=== PATIENT | male | born 1945 | race Caucasian/White ===

== ENCOUNTER 2019-07-04 08:19 | Inpatient (IN) ==
[2019-07-04] MEDS ORDERED: DUONEB (A & A) INH ONE (08:39)
--- NOTE | 2019-07-04 08:48 | PROVIDER DOCUMENTATION ---
HPI-Chest Pain - General Chief Complaint: Chest Pain Stated Complaint: chest pain Time Seen by Provider: 07/04/19 08:30 Source: patient Allergies/Adverse Reactions: Patient Allergies Allergy/AdvReac Type Severity Reaction Status Date / Time No Known Allergies Allergy Verified 07/04/19 09:11 Home Medications: Home Medication List Medication Instructions Recorded Confirmed Last Taken Type Cinacalcet HCl [Sensipar] 30 mg PO DAILY 08/09/14 07/04/19 07/03/19 07:00 History Folic Acid/Vitamin B Comp W-C 1 mg PO DAILY 06/10/17 07/04/19 07/03/19 07:00 History [Renavit Tablet] Meloxicam [Mobic] 7.5 mg PO DAILY 06/10/17 07/04/19 07/03/19 07:00 History Pramipexole Di-HCl [Mirapex] 0.5 mg PO BID 06/10/17 07/04/19 07/03/19 07:00 History Prasugrel [Effient] 10 mg PO DAILY 07/04/19 07/04/19 07/03/19 07:00 History Sevelamer Carbonate [Renvela] 800 mg PO ORDERED 07/04/19 07/04/19 07/03/19 18:00 History - History of Present Illness-CP Nature of Presenting Problem: 74 year old male pmh significatn for ESRD w/dialysis M/W/F and a history of CAD with multiple stent placed in the past was sent ot the ED from his dialysis center when he suddenly developed acute onset pressure like, non-radiating, subs ternal chest pain a/w with shortness of breath and diaphoresis, but no nausea, vomiting, dizziness, blurry vision, or feeling of going to pass out. The chest pain is worsened by movement and made better with resting, supplemental O2, and 4 baby ASA's given en route. Patient is not on supplental oxygen at home and was released this past thursday (07/01/19) from [facility] after being treated for pneumonia. The patient is currently satting at 82% on room air. Review of Systems - Adult - REVIEW OF SYSTEMS - ADULT Constitutional: reports: keaton. denies: chills, fever Eyes: denies: decreased vision, blurred vision, double vision Ears, Nose, Mouth & Throat: reports: no symptoms reported Cardiovascular: reports: chest pain, edema, irregular heart rate. denies: syncope Respiratory: reports: cough, dyspnea on exertion, shortness of breath Gastrointestinal: denies: abdominal pain, hematemesis, constipation, diarrhea, nausea, poor appetite, vomiting Genitourinary: denies: dysuria, frequent UTI's, hematuria, urinary retention Musculoskeletal: denies: joint swelling, muscle aches, muscle weakness Integumentary: reports: no symptoms reported Neurological: reports: no symptoms reported Psychiatric: reports: no symptoms reported Endocrine: reports: no symptoms reported Hematologic/Lymphatic: reports: easy bruising, lymphedema (bilateral lower extremities) All Other Systems: Reviewed and Negative Past History - Adult - PAST MEDICAL HISTORY-ADULT Review of Records: reports: Old Records Reviewed, Nursing Assessment Review, Medications Reviewed, Social history reviewed & non-contributory. Major Childhood Illnesses: reports: denies history Cardiovascular: reports: HTN Respiratory: reports: other (METS to lungs) Genitourinary: reports: cancer (renal cancer), dialysis, kidney stones Other Conditions: reports: denies history - PRIOR SURGERIES/PROCEDURES Surgical/Procedure History: reports: appendectomy, other (Patient had left femoral atery stent placed 2.[address] Neri) - PRIOR HOSPITALIZATIONS Prior Hospitalizations: reports: none - IMMUNIZATION STATUS Childhood Immunizations: See Nurse Assessment Flu Vaccine: See Nurse Assessment - FAMILY HISTORY Family History: reviewed, not pertinent - SOCIAL HISTORY Smoking: denies Substance Use: none/never Alcohol Use Frequency: never Living Situation: family (spouse) Physical Exam-General - PHYSICAL EXAM-ADULT Initial Vital Signs Reviewed: Yes (tachypnic) - CONSTITUTIONAL General Appearance: alert, moderate distress, obese, slow to respond - HEAD, EARS, NOSE, MOUTH & THROAT HENMT: normocephalic/atraumatic. negative: moist mucous membranes (dry mucous membranes) - NECK Neck: non-tender, full range of motion, supple, normal inspection. negative: Brudzinski's sign, lymphadenopathy, meningismus, thyromegaly - RESPIRATORY Respiratory: chest non-tender, respiratory distress (Patient speaks in slow short sentences, taking breaths in-between them), wheezing (minimal amount of wheezing in the irght lower lobe, overall decreased air movement in the lower lobes bilaterally but crackles, or rhonchi auscultated.), dull on percussion (lower lobes) - CARDIOVASCULAR Cardiovascular: no murmur, irregularly irregular (consistent with atrial fibrillation), other (patient has a buccal neck). negative: no edema (3+ pitting edema b/l), no gallop - GASTROINTESTINAL (ABDOMEN) Abdominal Exam: non tender, soft - MUSCULOSKELETAL Back Exam: normal inspection Extremity: normal range of motion, non-tender, no calf tenderness, pulse deficit (dcreases posterior tibial and dorasilis pedis pulses bilaterally. Each are +1) , other (palpable thrill under the right bicep, indicating intact fistula). negative: calf tenderness Peripheral Pulses: radial (R): 2+, radial (L): 2+, dorsalis-pedis (R): 1+, dorsalis-pedis (L): 1+ - SKIN Integumentary: other (venous stasis and hemosiderin deposition at the bilateral pretibial region of the LE's, the patient has a large midline scar down his abdomen from a prior surgery.) - NEUROLOGIC Neurologic: grossly normal - PSYCHIATRIC Psych/Mental Status: normal mood/affect, normal thought content, normal thought process, oriented x 3 - HEART Score HEART Score: History: Moderately Suspicious HEART Score: ECG: Normal HEART Score: Age: > or = 65 Years HEART Score: Risk Factors for Atherosclerotic Disease: > or = 3 Risk Factors or History of Atherosclerotic Disease HEART Score: Troponin: 1-3x Normal Limit Total HEART Score:: 6 Progress - PLAN OF CARE/RESULTS Progress/Plan/Lab Results: Vital Signs - 8 hr 07/04/19 08:25 07/04/19 09:45 07/04/19 09:49 Temperature 98.7 F Pulse Rate 74 73 Respiratory Rate 34 H 37 H Blood Pressure 103/54 O2 Sat by Pulse Oximetry 82 L 94 L 07/04/19 10:47 Temperature Pulse Rate Respiratory Rate Blood Pressure O2 Sat by Pulse Oximetry 96 Laboratory Results - last 24 hr 07/04/19 07/04/19 07/04/19 08:46 08:46 08:46 WBC RBC Hgb Hct MCV MCH MCHC RDW Std Deviation Plt Count MPV Immature Gran % (Auto) Neut % (Auto) Lymph % (Auto) [place] % (Auto) Eos % (Auto) Baso % (Auto) Immature Gran # (Auto) Neut # (Auto) Lymph # (Auto) [place] # (Auto) Eos # (Auto) Baso # (Auto) PT INR PTT (Actin FS) Specimen Type Sample Site pH pCO2 pO2 HCO3 Base Excess Oxyhemoglobin ABG O2 Sat (Calculated) ABG O2 Saturation ABG Carboxyhemoglobin ABG Methemoglobin Marco A Test A-a O2 Difference Total Hemoglobin Lactate Liter Flow Blood Gas Modality Vent Mode Spontaneous Rate FiO2 % Inspiratory BiPAP Expiratory BiPAP Sodium 137 Potassium 4.4 Chloride 95 L Carbon Dioxide 20 L Anion Gap 22 BUN 48 H Creatinine 8.2 H Estimated GFR/1.73 m2 6 BUN/Creatinine Ratio 6 Glucose 167 H Calculated Osmolality 290 Calcium 9.1 Total Bilirubin 0.45 AST 50 H ALT 34 Alkaline Phosphatase 121 Creatine Kinase 87 Troponin T High Sens 209 H* Hlg-K-Fagkobziifh Pept > 38599 H Total Protein 6.9 Albumin 4.3 Globulin 2.6 Albumin/Globulin Ratio 1.7 Plasma Lactate 07/04/19 07/04/19 07/04/19 08:46 08:46 08:46 WBC 18.18 H RBC 3.58 L Hgb 11.9 L Hct 37.8 L MCV 105.6 H MCH 33.2 H MCHC 31.5 L RDW Std Deviation 17.7 H Plt Count 262 MPV 11.3 H Immature Gran % (Auto) 0.3 Neut % (Auto) 91.0 H Lymph % (Auto) 4.6 L [place] % (Auto) 4.0 Eos % (Auto) 0.0 Baso % (Auto) 0.1 Immature Gran # (Auto) 0.05 H Neut # (Auto) 16.57 H Lymph # (Auto) 0.83 L [place] # (Auto) 0.72 H Eos # (Auto) 0.00 Baso # (Auto) 0.01 PT 15.9 INR 1.25 PTT (Actin FS) 80.4 H Specimen Type Sample Site pH pCO2 pO2 HCO3 Base Excess Oxyhemoglobin ABG O2 Sat (Calculated) ABG O2 Saturation ABG Carboxyhemoglobin ABG Methemoglobin Marco A Test A-a O2 Difference Total Hemoglobin Lactate Liter Flow Blood Gas Modality Vent Mode Spontaneous Rate FiO2 % Inspiratory BiPAP Expiratory BiPAP Sodium Potassium Chloride Carbon Dioxide Anion Gap BUN Creatinine Estimated GFR/1.73 m2 BUN/Creatinine Ratio Glucose Calculated Osmolality Calcium Total Bilirubin AST ALT Alkaline Phosphatase Creatine Kinase Troponin T High Sens Tvy-U-Ulonviekdxn Pept Total Protein Albumin Globulin Albumin/Globulin Ratio Plasma Lactate 1.0 07/04/19 07/04/19 09:45 11:40 WBC RBC Hgb Hct MCV MCH MCHC RDW Std Deviation Plt Count MPV Immature Gran % (Auto) Neut % (Auto) Lymph % (Auto) [place] % (Auto) Eos % (Auto) Baso % (Auto) Immature Gran # (Auto) Neut # (Auto) Lymph # (Auto) [place] # (Auto) Eos # (Auto) Baso # (Auto) PT INR PTT (Actin FS) Specimen Type ARTERIAL ARTERIAL Sample Site L BRACHIAL L RADIAL pH 7.15 L* 7.18 L* pCO2 64 H* 58 H* pO2 93 100 HCO3 19.2 L 19.3 L Base Excess -7.3 L -7.1 L Oxyhemoglobin 94.6 L 94.8 L ABG O2 Sat (Calculated) 16.6 15.5 ABG O2 Saturation 97.5 97.9 ABG Carboxyhemoglobin 2.20 2.00 ABG Methemoglobin 0.8 1.1 Marco A Test NO YES A-a O2 Difference 112.0 113.0 Total Hemoglobin 12.4 11.5 Lactate 1.00 0.90 Liter Flow 5.0 Blood Gas Modality CANNULA BI PAP Vent Mode BIPAP Spontaneous Rate 20 FiO2 % 40.0 40.0 Inspiratory BiPAP 18.0 Expiratory BiPAP 8.0 Sodium Potassium Chloride Carbon Dioxide Anion Gap BUN Creatinine Estimated GFR/1.73 m2 BUN/Creatinine Ratio Glucose Calculated Osmolality Calcium Total Bilirubin AST ALT Alkaline Phosphatase Creatine Kinase Troponin T High Sens Zdd-K-Otfxpfuuaid Pept Total Protein Albumin Globulin Albumin/Globulin Ratio Plasma Lactate Orders Category Date Time Status Admit - [facility] Routine AdmDCTranf 07/04/19 11:18 Active Activity - Strict Bedrest ORDERED Care 07/04/19 11:17 Active Cardiac Monitoring DIRECTED Care 07/04/19 08:37 Active IV Insertion NOW Care 07/04/19 08:54 Completed NEWS Score >or=5:Order NEWS Bundle S.O. NOW Care 07/04/19 08:38 Active Neurological Check Q4H Care 07/04/19 11:19 Active Notify Provider of NEWS Score NOW Care 07/04/19 08:54 Active Nursing- MD Consult Request ROUTINE Care 07/04/19 11:21 Active Oxygen Therapy- ED Nursing DIRECTED Care 07/04/19 08:37 Active Saline Loc NOW Care 07/04/19 08:37 Active Vital Signs Order ROUTINE Care 07/04/19 11:17 Active Physician/Provider Consults Routine Cons 07/04/19 11:17 Ordered Heart Healthy Diet Diet 07/04/19 11:19 Active CHEST-1 VIEW [RAD] Stat Exams 07/04/19 08:56 Completed ABG [RESP] Routine Lab 07/04/19 09:45 Completed ABG [RESP] Routine Lab 07/04/19 11:40 Completed BLOOD CULTURE [BLDCUL] Stat Lab 07/04/19 08:46 Ordered CBC WITH ELECTRONIC DIFF [HEME] Stat Lab 07/04/19 08:46 Completed CK PROFILE [SP CHEM] Stat Lab 07/04/19 08:46 Completed COMPREHENSIVE METABOLIC PANEL [CHEM] Stat Lab 07/04/19 08:46 Completed LACTATE, PLASMA [CHEM] Lab 07/04/19 12:00 Uncollected LACTATE, PLASMA [CHEM] Lab 07/04/19 15:00 Uncollected LACTATE, PLASMA [CHEM] Q3H Lab 07/04/19 08:46 Completed PRO B-NATRIURETIC PEPTIDE Stat Lab 07/04/19 08:46 Completed PROTIME WITH INR [COAG] Stat Lab 07/04/19 08:46 Completed PTT [COAG] Stat Lab 07/04/19 08:46 Completed TROPONIN T HIGH SENSITIVITY Stat Lab 07/04/19 08:46 Completed Acetaminophen [Tylenol] Med 07/04/19 11:17 Active 650 mg PO Q6H PRN PRN Albuterol 2.5MG/Ipratrop 0.5MG [Duoneb (A & A)] Med 07/04/19 08:39 Discontinued 3 ml INH NOW ONE CefEPIME [Maxipime] 1 gm Med 07/04/19 09:45 Discontinued 0.9% Sodium Chloride Inj [Ns] 50 ml IV NOW Heparin Med 07/04/19 10:04 Discontinued 5,000 unit SUBQ NOW ONE Levofloxacin 750 mg/D5w [Levaquin 750 mg/D5w] Med 07/04/19 09:45 Discontinued 750 mg in 150 ml IV NOW Ondansetron [Zofran] Med 07/04/19 11:17 Active 4 mg IV Q4H PRN PRN Vancomycin 500 mg/Ns Med 07/04/19 09:46 Discontinued 500 mg in 100 ml IV NOW Aerosol Treatments Routine Oth 07/04/19 08:39 Completed Aerosol Treatments Stat Oth 07/04/19 08:39 Completed BIPAP Stat Oth 07/04/19 10:30 Active CP/SOB/Palp >45 yrs of Age Stat Oth 07/04/19 08:37 Ordered O2 Per Protocol Stat Oth 07/04/19 08:54 Active EKG [EKG] Stat Ther 07/04/19 08:21 Draft Transfer/Admit Order [TRANSFER] Routine Transfer 07/04/19 11:22 Ordered POCUS of the heart shows no surrounding fluid within the pericardial space. 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 There are bilateral pleural effusions. There is a double-lumen catheter in the right internal jugular with its tip in the superior vena cava. IMPRESSION: Pulmonary edema and pleural effusions. Electronically signed by Elvis Uriarte 07/04/2019 9:13 AM 07/04/19912 Interpreting Physician: Elvis Uriarte MD Dictated Date/Time: 07/04/19911 cc: Amos Fitzgerald DO; Shashank Guido MD) - CONSULTS/PCP/HOSPITALIST Notification #1 *Consult/PCP/Hospitalist*: Occupational Therap[facility] to [place] transfer center Time Discussed: 10:55 (Will not accept admission) Reason/Comments: No medical necessary reason for transfer #2 Consult: Dr. Guido Time Discussed: 11:13 (Will accept inpatient) Reason/Comments: sepsis, probable PNA, pulmonary edema, pleural effusion, elevated troponin Consult Disposition: Will see in ED, Admit Departure - Departure Date of Disposition Decision: 07/04/19 Time of Disposition Decision: 11:14 (Admit inpatient) DIAGNOSIS: Dyspnea on exertion, Hypoxemia, Bilateral lower extremity edema, Pleural effusion, bilateral, Elevated troponin, Respiratory acidosis Chest pain Qualifiers: Ischemic chest pain type: unspecified angina pectoris type Pulmonary edema Qualifiers: Chronicity: acute Qualified Code(s): J81.0 - Acute pulmonary edema Sepsis Qualifiers: Sepsis type: sepsis due to unspecified organism Sepsis acute organ dysfunction status: with acute organ dysfunction Pneumonia Qualifiers: Pneumonia type: due to unspecified organism Laterality: right Lung location: lower lobe of lung Qualified Code(s): J18.1 - Lobar pneumonia, unspecified organism Disposition: ADMITTED INPATIENT 09 Certified Medical Emergency: Emergent Condition: Critical - Critical Care Note This patient required my direct & personal management of CC.: Yes Total Time (mins): 65 (The patient was admitted to the hospital, given breathing treatments and started on Bipap for fear of immenant respiratory system latha lure.) Critical Care Statement: This patient required my direct personal management to treat or rule out processes, the absence of which, could potentiallly result in sudden, clinically significant life or limb threatening deterioration. Attestation - Physician/ RADHA Attestation Patient care was provided by Advanced Practice Provider:: No The physician spent face to face time with patient:: Yes Advanced Practice Provider documentation review:: Supervising physician onsite and consulted in the evaluation and care of this patient. The physician did have a face to face encounter with the patient.
--- NOTE | 2019-07-04 09:15 | Diag Imaging Result Doc PS360 ---
EXAM: CHEST-1 VIEW 07/04/2019 HISTORY: chest pain TECHNIQUE: AP portable semiupright at 0902 COMMENT: There is worsening alveolar opacification of the lungs particularly the right lower lobe compared to seven 2018. There are bilateral pleural effusions. There is a double-lumen catheter in the right internal jugular with its tip in the superior vena cava. IMPRESSION: Pulmonary edema and pleural effusions. Electronically signed by Elvis Uriarte 07/04/2019 9:13 AM
[2019-07-04 09:27] LABS: INR 1.25; PROTIME 15.9 Seconds (11.0-16.0)
[2019-07-04 09:29] LABS: PTT 80.4 Seconds (22.3-41.8)
[2019-07-04] MEDS ORDERED: LEVAQUIN 750 MG/D5W 750 MG/150 ML IVPB IV ONE (09:45)
[2019-07-04] MEDS ORDERED: MAXIPIME 1 GM in NS 50 ML IV ONE (09:45)
[2019-07-04] MEDS ORDERED: VANCOMYCIN 500 MG/NS 500 MG/100 ML IVPB IV ONE (09:46)
[2019-07-04 10:03] LABS: BASO# 0.01 X1000 (0.0-0.2); BASO% 0.1 % (0.0-0.8); HEMATOCRIT 37.8 % (42.0-52.0); HEMOGLOBIN 11.9 g/dL (14.0-18.0); IMM GRAN# 0.05 X1000 (0.0-0.04); IMM GRAN% 0.3 % (0.0-0.5); LYMPH# 0.83 X1000 (1.2-3.4); LYMPH% 4.6 % (20.5-51.1); MCH 33.2 PG (27-31); MCHC 31.5 g/dL (33-37); MCV 105.6 FL (81-99); MONO# 0.72 X1000 (0.11-0.59); MPV 11.3 FL (7.4-10.4); NEUT# 16.57 X1000 (1.4-6.5); PLT 262 X1000 (130-400); RBC 3.58 XMIL (4.7-6.1); RDW 17.7 % (11.5-14.5); WBC 18.18 X1000 (4.8-10.8)
[2019-07-04] MEDS ORDERED: HEPARIN SUBQ ONE (10:04)
[2019-07-04 10:12] LABS: ALLEN TEST NO; BE -7.3 mmoll (-3.0-3.0); BLOOD TYPE ARTERIAL; HCO3-(ACT) 19.2 mmoll (20.0-26.0); METHB 0.8 % (0.0-1.5); O2(CT) 16.6 mL/dL (15.0-23.0); O2HB 94.6 % (95.0-99.0); PO2(98.6) 93 mmHg (60-100); SAMPLE BLOOD; SAO2 97.5 % (95.0-100.0); THB 12.4 g/dL (11.5-17.4)
[2019-07-04 10:14] LABS: MODALITY CANNULA
[2019-07-04 10:15] LABS: PCO2(98.6) 64 mmHg (35-45); pH(98.6) 7.15 (7.35-7.45)
--- NOTE | 2019-07-04 10:23 | ED EKG INTERP ---
This chart was entered by Sharlene Moore Scribe, acting as scribe for Amos Fitzgerald DO. EKG Interpretation - EKG Time of EKG reading by physician:: 08:30 EKG Read and Signed by:: Amos Fitzgerald EKG Interpretation (*Must complete 3 of following elements*): Abnormal Rate: 77 Rhythm: A Fib with rate controlled [place]: left QRS: RBB Comments: PVC's; artifact in V5; no STEMI Attestation - Physician/ RADHA Attestation Patient care was provided by Advanced Practice Provider:: No The physician spent face to face time with patient:: Yes Advanced Practice Provider documentation review:: Supervising physician onsite and consulted in the evaluation and care of this patient. The physician did have a face to face encounter with the patient. This chart was documented by the indicated scribe, (Sharlene Moore Scribe) and accurately reflects the services I performed and decisions made by Lia burciaga Michael B., DO, as attested by the provider's signature.
[2019-07-04 11:01] LABS: ALB/GLOB RATIO 1.7; ALBUMIN 4.3 g/dL (3.5-5.0); CALCIUM 9.1 mg/dL (8.8-10.2); POTASSIUM 4.4 mmol/L (3.5-5.1); TOTAL BILIRUBIN 0.45 mg/dL (0.20-1.00); TOTAL PROTEIN 6.9 g/dL (6.3-8.3)
[2019-07-04 11:08] LABS: CREATININE 8.2 mg/dL (0.7-1.2)
--- NOTE | 2019-07-04 11:10 | EKG Report ---
Test Performed on : 07/04/2019 08:21:02 AM Test Reason : CP Blood Pressure : / mmHG Vent. Rate : 077 BPM Atrial Rate : 073 BPM P-R Int : 000 ms QRS Dur : 140 ms QT Int : 392 ms P-R-T Axes : 000 -60 101 degrees QTc Int : 443 ms Atrial fibrillation. with premature ventricular or aberrantly conducted complexes. Left axis deviation Right bundle branch block Lateral infarct (cited on or before 11-JUN-2017) Inferior infarct (cited on or before 11-JUN-2017) Abnormal ECG When compared with ECG of 11-JUN-2017 10:37, Atrial fibrillation. has replaced Sinus rhythm. Questionable change in initial forces of Anterior leads QT has shortened Unconfirmed Result
[2019-07-04 11:48] LABS: ALLEN TEST YES; BE -7.1 mmoll (-3.0-3.0); BLOOD TYPE ARTERIAL; HCO3-(ACT) 19.3 mmoll (20.0-26.0); METHB 1.1 % (0.0-1.5); O2(CT) 15.5 mL/dL (15.0-23.0); O2HB 94.8 % (95.0-99.0); PO2(98.6) 100 mmHg (60-100); SAMPLE BLOOD; SAO2 97.9 % (95.0-100.0); SRATE 20 BPM; THB 11.5 g/dL (11.5-17.4)
[2019-07-04 11:51] LABS: PCO2(98.6) 58 mmHg (35-45); pH(98.6) 7.18 (7.35-7.45)
[2019-07-04 11:52] LABS: MODALITY BI PAP
--- NOTE | 2019-07-04 15:33 | Diag Imaging Result Doc PS360 ---
EXAM: CT HEAD W/O CONTRAST 07/04/2019 HISTORY: unequal pupil sizes TECHNIQUE: This exam was performed using automated exposure control, adjustment of mA or kV according to patient size, and/or use of iterative reconstruction technique. COMMENT: There is no evidence of mass effect, bleed, or abnormal extra-axial fluid collection. There are calcifications in the internal carotid and vertebral arteries bilaterally. There are mucus retention cysts in the left maxillary and sphenoid sinuses. There is enlargement of the sella turcica which is largely empty. The calvarium is intact. There are no previous studies. IMPRESSION: No evidence of acute intracranial disease. Electronically signed by Elvis Uriarte 07/04/2019 3:31 PM
[2019-07-04] MEDS ORDERED: NS 2,000 ML MISC PRN (16:07)
[2019-07-04] MEDS: TYLENOL PO PRN ×2 (16:46→23:01)
[2019-07-04] MEDS: PROAMATINE PO SCH ×2 (16:47→18:11)
[2019-07-04] MEDS: DOPAMINE 800 MG/D5W 800 MG/500 ML IV.SOLN IV SCH (16:47)
--- NOTE | 2019-07-04 17:09 | CARDIOLOGY CONSULTATION ---
DATE: 07/04/2019 HISTORY OF PRESENT ILLNESS: Mr. Srini Larson is a 74-year-old gentleman who was admitted at [facility] recently for about a week with pneumonia and he also has chronic renal failure. He has had bilateral nephrectomies undergoing dialysis. They had a problem with dialysis given his blood pressure was low and could not undergo the dialysis so they added midodrine 10 mg 3 times a day. In spite of that, his blood pressures have been low. Today, he went for dialysis. Blood pressure was noted to be low. He was short of breath and he was subsequently admitted. His states that he had not complained of any chest pain. He was admitted and was noted to be in heart failure. Dialysis is planned today. As far as pneumonia is concerned, he was treated and is followed by Dr. 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 HOME MEDICATIONS: Include folic acid, vitamin B, meloxicam, midodrine 10 mg 3 times a day, Renvela. Effient. PAST MEDICAL HISTORY: 1. Coronary artery disease, status post stent placement. 2. History of atrial flutter. 3. Renal cell carcinoma, being treated with chemotherapy by [facility]. He has metastasis to the lungs. 4. He has end-stage renal disease, on dialysis. 5. He has bilateral nephrectomies. 6. Obstructive sleep apnea. REVIEW OF SYSTEMS: Fourteen point review of system was done.GI: System there is no history of nausea, vomiting, diarrhea. There is no history of hematemesis or melena. Central nervous system: No focal weakness to suggest a CVA or TIA. Genitourinary System: There is no dysuria. PHYSICAL EXAMINATION: Vital Signs: Blood pressure was 95/50. Heart: 1st and second heart sounds were heard. There was no S3 gallop. Respiratory System: Scattered crepitations. Abdomen: Was soft, obese. Nontender, there was no guarding or rigidity. Bowel sounds were heard. Extremities: Reveal bilateral edema, DIAGNOSTIC REPORTS: Head CT was done as he was dizzy. No acute process noted. Chest x-ray revealed bilateral pleural effusion and pulmonary edema. LABORATORY EXAMINATION: Sodium 137, potassium 4.4, BUN 48, creatinine 8.2. ProBNP 71629. Troponin T 209. WBC 18, hemoglobin 11.9, hematocrit 37.8. Platelets are 262. ASSESSMENT AND PLAN: Mr. Srini Larson is a 74-year-old gentleman with history of bilateral nephrectomy, has had renal cell carcinoma, currently being treated. He was treated at the cancer center. He also has history of atrial flutter end-stage renal disease, on dialysis. 1. Obstructive sleep apnea. He was admitted and underwent treatment for pneumonia at [facility] where he underwent dialysis and had episodes of low blood pressure and was treated with midodrine. In spite of being on midodrine he has episodes of low blood pressure. He is admitted with shortness of breath. Electrocardiogram revealed atrial fibrillation, which has been transient and he is back in sinus rhythm. He has history of atrial flutter. He has been on Effient. Given his age and atrial fibrillation, for stroke prophylaxis we will discontinue the Effient and put him on Eliquis 2.5 mg twice daily. This is for stroke prophylaxis. 2. He is in heart failure. We will get an echocardiogram to assess cardiac and valvular function. 3. As far as cardiac enzymes are concerned, that is abnormal secondary to his renal insufficiency and likely heart failure. 4. He has had stent placement in the past. He has been on Effient which we will discontinue. I have not added any other medications at the present time. He denies chest pain. Electrocardiogram did not reveal any ST-T changes to suggest any significant ischemia other than atrial fibrillation which he has had transient. 5. As far as blood pressure support is concerned, if his blood pressure is low, we will put him on dopamine so that he can get dialyzed as an inpatient. He has been having significant episodes of hypotension where they could not complete the dialysis and midodrine was started. Thank you for the consult. We will follow hospital course. cc: MD Shashank Alvarez MD
--- NOTE | 2019-07-04 18:47 | HISTORY AND PHYSICAL ---
CHIEF COMPLAINT: Chest pain. HISTORY OF PRESENT ILLNESS: This 74-year-old white male has an extremely complex medical history including end-stage renal disease. According to the patient's , he went to dialysis this morning and during dialysis was noted to be relatively hypotensive and complained of chest pain. The patient was recently discharged from [facility] after about a 2-week stay. At the time of that admission, he had also been hypotensive and was not doing well on dialysis and an ambulance was called to his [place] [facility] unit and he was immediately taken to [place] for somewhat inexplicable reasons. Nevertheless, he had 2 weeks worth of stay at the hospital there and then went to rehab. He was at rehab here in [place] and getting his dialysis today when he had the onset of chest pain. 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 We discussed his last [place] hospitalization in which he had very tenuous fluid balance which required multiple sessions of gentle dialysis with appropriate levels of fluid removal. Upon admission, I saw the patient in the emergency room and the workup performed by the emergency room showed an elevated white cell count, low blood pressure, markedly elevated proBNP and a somewhat elevated troponin. The emergency room immediately launched a sepsis workup and treatment, but the patient's objected due to the high levels of fluid volume going in with the antibiotics. She reported the patient had been admitted to [facility] and eventually diagnosed with pneumonia but she had seen no signs or symptoms of that. The patient was last seen in the office in March and seemed to be doing fairly well at that time. PAST MEDICAL HISTORY: 1. End-stage renal disease with dialysis on Thursday, Thursday, and Thursday. 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 2. Obstructive sleep apnea. 3. Hypertension. 4. Chronic diastolic congestive heart failure. 5. Chronic hypotension. 6. Restless legs syndrome. PAST SURGICAL HISTORY: 1. Left kidney removed 1969. 2. Right kidney removed 2011. 3. Appendectomy 1971. 4. Dialysis fistula placed in 2010. 5. Coronary stent placement 2017. 6. AICD. SOCIAL HISTORY: The patient is and lives with his . He is a nonsmoker for his entirety life. Does not use alcohol. FAMILY HISTORY: Significant for hyperlipidemia, hypertension, diabetes and arthritis is noted. HEALTH HISTORY: Is noted that the patient is up-to-date with vaccinations. REVIEW OF SYSTEMS: Please see history of present illness. The patient has not been coughing but has been short of breath and breathing heavily. During his hospitalization in [place] he required BiPAP because he had "CO2 toxicity" according to the . He has had no nausea, vomiting. He denies any abdominal pain. He did not have any chest pain prior to dialysis today, although this has occurred in the past. He is followed by Dr. Darwin Lu in [place]. The patient and family have noted swelling of the lower extremities over the past several weeks which has been unabated due to the relative inefficiency of fluid removal during dialysis. EXAM: Vital Signs: 98.7, 74 pulse, 34 respiratory rate, 103/54, 82% saturated on room air. General: He is an obese white male who is breathing rapidly but he is able to carry on a conversation. He generally has his eyes closed but can respond to questions and seems to have his wits about him. HEENT: Sclerae are anicteric. Lungs: Show bilateral crackles and mild expiratory wheezing. Cardiovascular: Irregular rhythm at approximately 75 beats per minute. Extremities: Show 3+ to 4+ edema below the knee and less above the knee. Abdomen: Protuberant. Skin: Is noted the patient has multiple ecchymoses around his chest area. When I discussed this with the patient's she then mentioned that he had a graft revision which required an additional Vas-Cath placement in his left chest. He already has a port available in the right chest and is a very difficult stick. Neurological: Cranial nerves appear to be intact. The ICU nurse noted inequality of pupils and we ordered CT scan but this was normal as well. LABORATORY: White cell count 18.1, hemoglobin 11.9. ABG was 7.15, CO2 of 64, PO2 of 93, this was on a nasal cannula. BUN is 48, creatinine 8.2, glucose 167, troponin T was 209, proBNP was greater than 35,000, plasma lactate was 1.5. ASSESSMENT AND PLAN: 1. The patient will be admitted to the ICU and consulted Pulmonary, Cardiology, and Nephrology. In the past the patient has benefitted most from dialysis when he has been fluid overloaded in this fashion. It always seems to be very tenuous because of his blood pressure issues. I noted that some midodrine had been added to his regimen and have increased this. 2. The patient's pulmonary edema will be treated with BiPAP, as stated earlier he is in the ICU and Pulmonary will be consulted. 3. The patient's had requested a portable DNR as that is the status that he had in [place] over the last several weeks. cc: Shashank Guido MD
[2019-07-04] MEDS: ELIQUIS PO SCH (20:16)
--- NOTE | 2019-07-04 20:34 | NEPHROLOGY CONSULTATION ---
DATE: 07/04/2019 REASON FOR ADMISSION: Hypotension with increased work of breathing. REASON FOR CONSULT: End-stage renal disease. CONSULTING PHYSICIAN: Dr. Guido. HISTORY OF PRESENT ILLNESS: Mr. Larson is a 74-year-old white male who has previously been seen by our office for end-stage renal disease, who is now followed at the [facility] [address]. The patient had gone to his regular dialysis treatment today after being discharged from [facility] last Thursday for pneumonia and pulmonary edema. His states that he has chronic low blood pressure and has recently been started on Midrin 10 mg 3 times a day. In spite of this, blood pressure remains low. They had taken him off dialysis and sent him to [facility] for further monitoring and evaluation. In the emergency room, he developed acute onset like chest pressure, nonradiating, substernal, increased work of breathing with an O2 saturation in the 82% range. He had association of increased work of breathing with diaphoresis. No nausea, vomiting, no dizziness, no changes of vision. Blood pressure in the emergency room was found to be low. He was given cefepime 1 g. He was started on IV fluids. He was given Levaquin 750 mg. He was given several aerosol treatments placed on BiPAP and admitted to the ICU for further monitoring and evaluation. His chest x-ray in the emergency room showed worsening alveolar opacification in the lungs, particularly the right lower lobe, bilateral pleural effusions, double-lumen catheter to the right internal jugular with the tip in the superior vena cava. The impression on the chest x-ray was pulmonary edema with pleural effusions. He has a split cath catheter to the left chest wall attempting to start dialysis with SLED at this time. The patient currently has orders for dopamine. He has no IV sites that are currently to obtain. Secondary to these findings, we have requested Dr. Kelly for placement of a central line. Under medications, the patient was also given vancomycin in the emergency room. The patient states that his chest is just slightly better, though he does continue to have increased work of breathing. PAST MEDICAL HISTORY: End-stage renal disease with hemodialysis on Thursday, Thursday, Thursday at the [facility] [address]. Coronary artery disease status post stent placements, history of atrial flutter, history of renal cell carcinoma with chemotherapy and bilateral nephrectomies. He has obstructive sleep apnea, anemia of chronic disease, osteodystrophy of chronic disease along with hypotension, chronic. The patient is on Midodrine. SURGICAL HISTORY: As mentioned bilateral nephrectomies. He has had an appendectomy, left femoral artery stent placement. He has had a revision of his right upper arm graft by Dr. Walsh. He also has a split shaft tunneled dialysis catheter to the left chest wall and a port to the right chest wall. SOCIAL HISTORY: He is . He lives with his spouse. He has family who are attentive to his care. Denies tobacco, alcohol or illicit drug use. FAMILY HISTORY: No history of renal disease. Positive for cardiac. ALLERGIES: Listed as no known drug allergies. MEDICATIONS: Have yet to be reconciled. REVIEW OF SYSTEMS: Times 10 with pertinent positives listed above in the HPI. VITAL SIGNA: The patient's current vital signs: Last temperature 98.2 degrees, blood pressure 81/55, heart rate 72 irregular. Respiratory rate is 27. The patient is currently on BiPAP 5 L. No intake and output documented. LABS: Sodium is 137, potassium 4.4, chloride 95, CO2 20, BUN 48, creatinine 8.2, glucose 167. His anion gap is 22, calcium is 9.1, albumin of 4.3. Plasma lactate 1.5. White count 18.18, hemoglobin 11.9, hematocrit 37.8, with a platelet count of 262,000. His ProTime is 15.9, INR 1.25, PTT 80.4. ABGs: PH 7.18, CO2 58, PO2 100. The patient's bicarb is 19.3 lactate of 0.9. He is now on 40% BiPAP while in the ICU. Blood cultures are currently pending. The patient is being treated for sepsis. PHYSICAL EXAMINATION: General: This is a 74-year-old white male. He is resting quietly in bed. He appears chronically ill. He is in mild distress secondary to increased work of breathing. The patient is currently on 40% BiPAP. He remains tachypneic on the monitor. Skin: Warm and dry. HEENT: Normocephalic, atraumatic. Conjunctiva is pale pink. Mucous membranes are dry. Neck: Supple. Trachea midline. Positive for JVD. Cardiovascular: Irregularly irregular rate and rhythm. He is in atrial fib, atrial flutter on the monitor. Lungs: He has wheezing more in the right than the left upper lobes. No rhonchi. He does have bilateral crackles to the lower posterior bases. Remains on O2 support. Abdomen: Large obese soft nontender positive bowel sounds. Genitourinary: Not inspected. Minimal void with dialysis assist. Extremities: The patient at this time continues with 2 to 3+ edema up into the mid hip region and into the abdominal wall. Integumentary: Patient has chronic venous stasis with different stages of healing of ecchymosis to upper chest wall, upper and lower extremities. Neurological: He is awake, though slightly lethargic. Remains on BiPAP. ASSESSMENT AND PLAN: 1. Chronic kidney disease stage 5D. The patient was taken off his routine dialysis treatment secondary to a drop in his blood pressure and increased work of breathing. We will attempt to place the patient on SLED for approximately 3 to 4 hours in an attempt to at least get 2 to 3 L of ultrafiltration this evening. 2. Electrolytes and acid-base balance. These are acceptable with correction on dialysis. 3. Anemia. This is in target of hemoglobin 11.9. 4. Sepsis. Patient's white count is 18.18. He has been given 1 L of fluid resuscitation. He has also been treated with Maxipime, vancomycin and Levaquin prophylactically. 5. Fluid volume overload. Again, with assistance with dialysis this evening. We will plan for dialysis again in the a.m. I would to thank you for allowing us to follow with this patient. Dictated by DARLIN Ward for Ancelmo Finch MD cc: DARLIN Ward MD Timothy P. Weirich, MD
--- NOTE | 2019-07-04 22:21 | PULMONOLOGY CONSULTATION ---
DATE: 07/04/2019 REQUESTING CLINICIAN: Dr. Shashank Guido. REASON FOR CONSULTATION: Hypercarbia. HISTORY OF PRESENT ILLNESS: Mr. Larson is a 74-year-old male, never smoker, who is anephric due to bilateral renal cell carcinoma. The patient also has coronary artery disease with prior stent placements. He has had difficulty with hypotension and dialysis and by report he was recently discharged from [facility]. Per Dr. Guido's note, there has been progressive difficulty in fluid removal. He was sent to the emergency room due to worsening shortness of breath and chest pressure with an oxygen saturation at 82%. PAST MEDICAL HISTORY: 1. Bilateral nephrectomy as per above. 2. Coronary artery disease status post multiple stent placement. 3. Renal cell carcinoma with metastasis to the lungs. 4. Obstructive sleep apnea. 5. Chronic hypotension. SOCIAL HISTORY: He is . No alcohol or tobacco use. FAMILY HISTORY: Positive for heart disease but otherwise noncontributory. REVIEW OF SYSTEMS: Limited given BiPAP placement and drowsy mental state. PHYSICAL EXAM: Reveals a chronically ill-appearing male with a BiPAP in place. He is moving adequate volumes. Blood pressure 89/54, heart rate 70, respiratory rate 17, oxygen saturation 97%.HEENT: Pupils are equal and reactive. Oropharynx appears clear. Neck: Supple. Chest: Reveals diminished breath sounds right greater than left base. Cardiac: S1, S2. Regular rhythm. Abdomen: Soft and doughy in consistency. Extremities: Reveal 1+ peripheral edema. LABORATORIES: Chest x-ray reveals bilateral pleural effusions right greater than left. White blood count 18.18, hemoglobin 11.9, platelet count 262,000. Arterial blood gas on BiPAP reveals a pH 7.19, pCO2 of 58, pO2 of 100. IMPRESSION: Unfortunate 74-year-old male with 1. Acute hypoxemic respiratory failure. 2. Acute hypercapnic respiratory failure. 3. Bilateral nephrectomy for renal cell carcinoma. 4. Renal cell carcinoma. 5. Bilateral effusions. 6. Progressive difficulty with dialysis. DISCUSSION: 74-year-old with problems outlined above. Physiologically, he appears to be in very poor shape and is having difficulty with ongoing hypotension and fluid retention. He has known metastasis to the lungs but these are not easily identified or appreciated on current x-rays. PLAN: 1. Continue hemodialysis as tolerated. 2. Continue BiPAP at current settings. 3. Consider morphine if needed for comfort. 4. Agree with current resuscitation status which will allow him to have a natural if he perishes during this hospitalization. cc: MD Shashank Bravo MD
--- NOTE | 2019-07-05 00:11 | GENERAL SURGERY CONSULTATION ---
DATE: 07/04/2019 REASON FOR CONSULTATION: Vascular access. HISTORY OF PRESENT ILLNESS: This is a 74-year-old gentleman with multiple medical issues. He is on dialysis because he has had bilateral nephrectomies for renal cell carcinoma. He has peripheral vascular disease, but this has been treated in [place], and recent iliac stent. He presented with volume overload and started on slow intermittent dialysis in the ICU via left PermCath. Two weeks ago he had a iliac stent as well as revision of his right upper arm AV fistula. He also has a port in his right internal jugular vein. He has had chronic ischemic wounds to his bilateral feet. He is currently on low-dose dopamine to facilitate his hemodialysis, he runs chronically low as far as blood pressures go. PAST MEDICAL HISTORY: As noted in the HPI, with addition of obstructive sleep apnea, hypertension, chronic diastolic heart failure, chronic hypertension, and restless legs. PAST SURGICAL HISTORY: He has had bilateral nephrectomies, appendectomy, a right upper extremity AV fistula placed in 2010 with subsequent revision 2 weeks ago, coronary stent, iliac stent, AICD, right port, left PermCath. SOCIAL HISTORY: He does not smoke or drink alcohol. He has an attentive of 50 years here with him. FAMILY HISTORY: Reviewed. REVIEW OF SYSTEMS: A 10-point review of systems was performed and negative other than what is mentioned in the HPI. PHYSICAL EXAMINATION: Vital Signs: He is afebrile. Mild tachycardia. Blood pressures in the low 100s. General: He is chronically ill appearing. No acute distress. HEENT: No scleral icterus. Cardiovascular: Normal rate. Pulmonary: He is on BiPAP. Abdomen: Soft, nontender, nondistended. Integument: Warm, dry. Peripheral Vascular: Shows a right upper extremity AV fistula with a thrill. He has chronic ischemic changes to his bilateral feet that are cool. He has a left-sided PermCath and a right-sided port. Neurologic: Generalized weakness. Psychiatric: He does seem somewhat conversant. LABORATORY DATA: White count is 18, hematocrit is 37, platelets 262,000. ABG shows respiratory acidosis with a pH of 7.18 and a CO2 of 58, creatinine is 8.2, potassium is 4.4. His proBNP is greater than 35,000. Lactate is 1.5. IMAGING: Chest x-ray shows volume overload and bilateral effusion. ASSESSMENT AND PLAN: This is a gentleman with limited vascular options. He has a right-sided port and a PermCath, currently he being dialyzed via his PermCath and dopamine is infusing via his port. He does not have peripheral IV despite multiple attempts. Given the entire picture he only has 2 hours more of dialysis and plans for antibiotics tonight, this can be administered via the PermCath and port. If he requires more access we will placed this tomorrow. The is apprehensive to have this placed in his leg given his lower extremity vascular disease and just the general discomfort as is the patient, but in a couple hours he will have at least 2 ports via his PermCath and his port on the right. We will follow along with plan for possible central line tomorrow. cc: MD Shashank Foreman MD
[2019-07-05] MEDS ORDERED: NS 2,000 ML MISC PRN (06:22)
[2019-07-05 06:42] LABS: ALBUMIN 4.5 g/dL (3.5-5.0); CALCIUM 9.4 mg/dL (8.8-10.2); CREATININE 9.5 mg/dL (0.7-1.2); MAGNESIUM 2.8 mg/dL (1.5-2.7); PHOSPHORUS 8.5 mg/dL (2.7-4.5); POTASSIUM 4.8 mmol/L (3.5-5.1)
--- NOTE | 2019-07-05 07:28 | EKG Report ---
Test Performed on : 07/05/2019 07:04:12 AM Test Reason : dyspnea Blood Pressure : / mmHG Vent. Rate : 089 BPM Atrial Rate : 208 BPM P-R Int : 000 ms QRS Dur : 144 ms QT Int : 384 ms P-R-T Axes : 000 -63 109 degrees QTc Int : 467 ms Atrial fibrillation. / atrial flutter with premature ventricular or aberrantly conducted complexes. Left axis deviation Nonspecific intraventricular block Lateral infarct (cited on or before 11-JUN-2017) Inferior infarct (cited on or before 11-JUN-2017) T wave abnormality, consider anterior ischemia Abnormal ECG When compared with ECG of 04-JUL-2019 08:21, (Unconfirmed) No significant change was found Confirmed by Michael Bourgeois MD ([id number]) on 07/06/2019 6:12:57 PM
[2019-07-05] MEDS ORDERED: MIRAPEX PO SCH (09:00)
[2019-07-05] MEDS: PROAMATINE PO SCH ×3 (09:04→16:05)
[2019-07-05] MEDS: ELIQUIS PO SCH ×2 (09:04→20:07)
[2019-07-05] MEDS: TYLENOL PO PRN ×3 (09:06→23:29)
--- NOTE | 2019-07-05 09:28 | PROGRESS NOTE ---
DATE: 07/05/2019 SUBJECTIVE: The patient's states that he has obviously improved since dialysis yesterday. She noted the fine wrinkling of his lower extremities as a sign of volume loss and his improved breathing, although he is still on BiPAP. They expressed no significant new needs today and we outlined a plan going forward. OBJECTIVE: Vital Signs: 97.8, pulse rate of 72, respiratory rate is 20, blood pressure 185/52, 100 percent saturated on BiPAP. PHYSICAL EXAMINATION: The patient is awake and alert and much more interactive than he was yesterday, but he is hindered by his BiPAP mask. He seems to not be in any distress, although he is mildly to moderately tachypneic. Lungs: Clear. There is no wheezing present. Cardiovascular: Regular rhythm on the monitor. Extremities: Show fine wrinkling, consistent with volume loss. The small ulcerations on his toes have all been painted with Betadine, so he looks significantly worse today as a result. ASSESSMENT AND PLAN: 1. We will continue multiple days of dialysis to remove fluid volume with blood pressure support. I have drawn a cortisol level to make sure that is not an issue that may be affecting his blood pressure. 2. The patient's restless legs syndrome medications will be restarted. 3. The patient had an elevated white cell count when he came to the emergency room. The patient's nurse in the ICU is very concerned about the high white cell count, even though he has no other manifestations of infection such as fever. He is chronically hypotensive. I do not think this is related to a sepsis syndrome. I will plan to draw another CBC today and see what his white cell and hemoglobin and hematocrit are. 4. We have had issues with vascular access since he has a port on the right, what appears to be a Vas-Cath on the left, but we really do not have any other avenues for access. We are considering a PICC line if necessary but would prefer to avoid any lines in his legs if at all possible. cc: Shashank Guido MD
[2019-07-05 14:46] LABS: HEPATITIS PROFILE ACUTE SEE COMMENTS
[2019-07-05] MEDS: DOPAMINE 800 MG/D5W 800 MG/500 ML IV.SOLN IV SCH (16:05)
--- NOTE | 2019-07-05 18:57 | GENERAL SURGERY PROGRESS NOTE ---
DATE: 07/05/2019 SUBJECTIVE: He had a peripheral IV placed by the PICC team. He tolerated hemodialysis today. Remains on BiPAP. On exam his blood pressures are stable but low, low-grade tachycardia. No fevers. I reviewed his labs. On exam he has a left-sided PermCath, right-sided port and stable chronic ischemic changes of bilateral feet. ASSESSMENT AND PLAN: He seems to have adequate access including the port. PermCath and now peripheral IV. Will hold off on central line. Obviously, if he were to require this, we could place it. Will continue Betadine paint to the feet. cc: MD Shashank Foreman MD
[2019-07-05] MEDS: MIRAPEX PO SCH (20:07)
--- NOTE | 2019-07-05 20:24 | PROVIDER PROGRESS NOTE ---
Progress Note Subjective: patient is awake and on BiPAP. His speech is somewhat garbled because of that. He denies any current chest pain, shortness of breath, or nausea and vomiting. However, he appears to have an increased work of breathing. Objective: temperature 97.8, pulse 90, respirations 20, blood pressure 95/55, 02 sat 94% on 40% bipap. General: chronically ill white male lying in bed in no acute distress. HEENT: normocephalic, atraumatic, pupils equal and reactive, mucous membranes drive. Skin: warm and dry. Multiple bruises in different healing stages. Neck: supple, positive JVD with Hepatojugular reflux. Cardiovascular: S1, S2, distant heart tones. Regular rate and rhythm. No murmurs or gallops noted. Respiratory: clear to auscultation anteriorly Abdomen: soft, obese, nontender nondistended. Hypoactive bowel sounds. : non inspected Extremities: 2+ pitting edema that extends to his abdominal wall. Neurological: alert and oriented to person, place, and time. Labs: sodium 137, potassium 4.8, chloride 95, carbon dioxide 21, BUN 63, creatinine 9.5, phosphorus 8.5, magnesium 2.8. Intake 1156, output 3133. Impression: Chronic kidney disease stage 5D. He tolerated Slow Low Efficiency Dialysis with a 3133 mL ultrafiltration. We will attempt SLED again today with a 3K bath for eight hours as tolerated. Blood pressure. Hypotension. His reports that the 2 weeks he was in [facility], they were unable to remove any fluid because of hypotension. Dopamine and proamatine in place. Mirapex added today. Fluid volume. Expanded. We will attempt SLED today with a 6L ultrafiltration. Anemia. Stable. Electrolytes. Stable Anion gap acidosis. Likely Related to renal failure. Manage with Dialysis. Nutrition. Diet ordered Physical deconditioning. He will need physical therapy ordered when it is appropriate. Deferred to primary. Medication review, mirapex started.
--- NOTE | 2019-07-05 21:48 | PULMONOLOGY PROGRESS NOTE ---
DATE: 07/05/2019 SUBJECTIVE: The patient is awake and alert. He feels more comfortable today. OBJECTIVE: Vital Signs: The patient has been afebrile for the last 24 hours. Blood pressure 115/82, heart rate 98, respiratory rate 17, oxygen saturation 95%. HEENT: Pupils are equal and reactive. Oropharynx appears clear. Neck: Supple. Chest: Diminished breath sounds in both lung bases. Cardiac: S1, S2. Abdomen: Soft. Extremities: Some fluid loss and wrinkling in the feet. LABORATORY DATA: No new chemistries or CBC today. IMPRESSION: A 74-year-old with: 1. Acute hypoxemic respiratory failure. 2. Acute hypercapnic respiratory failure. 3. Metastatic renal cell carcinoma. 4. End-stage renal disease with bilateral nephrectomies. 5. Fluid overload. DISCUSSION: A 74-year-old with problems outlined above. He is improving with fluid retention. His prognosis remains poor. PLAN: 1. Hemodialysis per Nephrology as tolerated. He is doing well with fluid removal. 2. Continue BiPAP at bedtime and p.r.n. 3. Continue palliative care measures. 4. Continue current resuscitation status. 5. Follow up chest x-ray and blood gas in the morning. cc: MD Shashank Bravo MD
[2019-07-06 04:51] LABS: ALLEN TEST YES; BE -7.5 mmoll (-3.0-3.0); BLOOD TYPE ARTERIAL; METHB 1.3 % (0.0-1.5); O2(CT) 17.3 mL/dL (15.0-23.0); O2HB 94.1 % (95.0-99.0); PCO2(98.6) 37 mmHg (35-45); PO2(98.6) 83 mmHg (60-100); SAMPLE BLOOD; SAO2 97.4 % (95.0-100.0); SRATE 20 BPM
[2019-07-06 04:52] LABS: MODALITY BI PAP
[2019-07-06] MEDS: TYLENOL PO PRN ×4 (05:08→23:57)
[2019-07-06 06:49] LABS: ALBUMIN 4.3 g/dL (3.5-5.0); CALCIUM 9.3 mg/dL (8.8-10.2); POTASSIUM 5.1 mmol/L (3.5-5.1)
[2019-07-06 06:59] LABS: BASO# 0.02 X1000 (0.0-0.2); BASO% 0.2 % (0.0-0.8); EOS# 0.04 X1000 (0.0-0.7); EOS% 0.3 % (0.0-10.0); HEMATOCRIT 38.9 % (42.0-52.0); HEMOGLOBIN 12.1 g/dL (14.0-18.0); IMM GRAN# 0.04 X1000 (0.0-0.04); IMM GRAN% 0.3 % (0.0-0.5); LYMPH# 1.19 X1000 (1.2-3.4); LYMPH% 9.8 % (20.5-51.1); MCH 33.2 PG (27-31); MCHC 31.1 g/dL (33-37); MCV 106.6 FL (81-99); MONO# 0.78 X1000 (0.11-0.59); MONO% 6.4 % (1.7-9.3); MPV 11.2 FL (7.4-10.4); NEUT# 10.09 X1000 (1.4-6.5); PLT 219 X1000 (130-400); RBC 3.65 XMIL (4.7-6.1); RDW 17.1 % (11.5-14.5); WBC 12.16 X1000 (4.8-10.8)
[2019-07-06 07:17] LABS: CREATININE 5.9 mg/dL (0.7-1.2)
--- NOTE | 2019-07-06 07:18 | Diag Imaging Result Doc PS360 ---
EXAM: CHEST-PORTABLE 07/06/2019 HISTORY: abnormal exam TECHNIQUE: AP portable at 0519 COMMENT: There is a double-lumen catheter in the left internal jugular with its tip in the superior vena cava. There is a Port-A-Cath on the right with its tip in the superior vena cava. There is cardiomegaly. Compared to 07/04/2019 the volume of pleural fluid has diminished on both sides and there is slightly improved pulmonary edema in the right upper lobe. IMPRESSION: Improved pulmonary edema and pleural effusions. Electronically signed by Elvis Uriarte 07/06/2019 7:16 AM
[2019-07-06] MEDS ORDERED: NS 2,000 ML MISC PRN (08:46)
[2019-07-06] MEDS: MIRAPEX PO SCH ×2 (09:22→21:49)
[2019-07-06] MEDS: PROAMATINE PO SCH ×3 (09:22→17:56)
[2019-07-06] MEDS: ELIQUIS PO SCH ×2 (09:22→21:49)
[2019-07-06] MEDS: DOPAMINE 800 MG/D5W 800 MG/500 ML IV.SOLN IV SCH (12:17)
--- NOTE | 2019-07-06 16:33 | PROVIDER PROGRESS NOTE ---
Progress Note Subjective: He is more alert and following commands. He denies any uremic complaints. Objective: temperature 97.8, pulse 76, respirations 28, blood pressure 114/27, o2 sat 97% on Venturi mask. General: chronically ill white male lying in bed in no acute distress. HEENT: normocephalic, atraumatic, pupils equal and reactive, mucous membranes dry. Skin: warm and dry. Multiple bruises in different healing stages. Neck: supple, positive JVD with Hepatojugular reflux. Cardiovascular: S1, S2, distant heart tones. Regular rate and rhythm. No murmurs or gallops noted. Respiratory: clear to auscultation anteriorly Abdomen: soft, obese, nontender nondistended. Hypoactive bowel sounds. : non inspected Extremities: 2+ pitting edema to BLE with Trace edema to hips. Neurological: alert and oriented to person, place, and time. Labs: WBC 12.16, hemoglobin 12.1, hematocrit 38.9, platelet count 219, sodium 136, potassium 5.1, chloride 98, carbon dioxide 16, BUN 37, creatinine 5.9. Intake 2352, output 6000. Impression: Chronic kidney disease stage 5D. Creatinine down to 5.9. He tolerated Slow Low Efficiency Dialysis with a 6000mL ultrafiltration. This is a total of 9L in 2 days. We will attempt SLED again today with a 4K bath and attempt a 4-6L ultrafiltration. Blood pressure. Hypotensive. Remains on dopamine drip. Fluid volume. Expanded. We will attempt SLED again today. Anemia. Stable. Electrolytes. Stable Anion gap acidosis. Likely Related to renal failure. Manage with Dialysis. Nutrition. Diet ordered Physical deconditioning. Deferred to primary. Medication review, no changes
--- NOTE | 2019-07-06 17:52 | PROGRESS NOTE ---
DATE: 07/06/2019 SUBJECTIVE: The patient continues to improve today. He is conversive, appropriate, and much more animated. His states that she knows that he is better because he is starting to complain. He denies any worsening with his breathing. He feels like he is gaining a little bit of energy. OBJECTIVE: Vital Signs: 97.8, 97, 20, 102/56. The patient is on a Venturi mask at the time of my examination. General: The patient has good air movement. Lungs: Generally clear. Cardiovascular: Appears to be regular with a rate of approximately 90 to 100 beats per minute. Blood pressure on the monitor shows a systolic of 102. He is still on dopamine. Extremities: Show wrinkling consistent with considerable volume loss. You can tell that same affect in the skin around his eyes and on his face. His toes have continued to be painted with Betadine. ASSESSMENT AND PLAN: 1. The patient continues on sustained low efficiency dialysis to remove considerable fluid volume. At present, he has lost approximately 25 pounds of fluid, which is quite amazing. He remains hypotensive. It is noted that his a.m. cortisol level was 19.8, which is appropriate for the stressful situation he is under. 2. Restless leg medication has been reinstituted. 3. White cell count was 12,000 this morning. I do not see any other evidence of infection. 4. The patient's respiratory failure is improving with fluid removal via dialysis. He is still acidotic, although his last measured CO2 via arterial blood gas was back within the normal range. It is noted that his bicarb is 16 on a CMP. 5. The patient's vascular access was deemed adequate and we have not consulted the PICC team. We will continue to use vascular access that we have for right now. Apparently, a peripheral IV was started eventually. cc: Shashank Guido MD
--- NOTE | 2019-07-06 19:58 | ECHO REPORT ---
ORDER DATE: 07/05/2019 MEASUREMENTS: Septal thickness 1.1, left ventricular internal diameter end- systole 5.3, posterior wall thickness 1.1, left atrium 4.7, aortic root 3.3. SUMMARY: 1. Technically difficult study due to very limited acoustic window quality. Intravenous echo contrast agent Optison was utilized to enhance endocardial definition. 2. Aortic valve was not well imaged, but demonstrates sclerotic changes. Peak gradient across the aortic valve is 27 mmHg with a mean gradient of 16 mmHg. The calculated aortic valve area by Doppler is 1.7 cm2, suggesting mild aortic stenosis. There is mild to moderate aortic regurgitation. Mitral and tricuspid valves are without evidence of structural abnormality, while pulmonic valve is not well demonstrated.There is moderate mitral regurgitation. There is mild to moderate tricuspid regurgitation. The estimated systolic PA pressure by Doppler is 50 to 55 mmHg, suggesting moderate pulmonary hypertension. The aortic root is normal in size. 3. Normal left ventricular chamber size with upper normal wall thickness demonstrated. The estimated left ventricular ejection fraction appears to be at least 40%. Regional wall motion analysis is challenging given the limitations of the study. There appears to be a small area of apical severe hypokinesis. The left atrium is moderately enlarged. The right atrium and right ventricle appear mildly enlarged with mildly reduced right ventricular systolic function. 4. No pericardial effusion. 5. Appearance of the inferior vena cava suggests elevated central venous pressure. CONCLUSIONS: 1. Technically difficult study. 2. Mild aortic stenosis with [id number] aortic regurgitation. 3. Moderate mitral regurgitation. 4. Mild to moderate tricuspid regurgitation with moderate pulmonary hypertension by Doppler. 5. Estimated left ventricular ejection fraction appears to be at least 40%. Regional wall motion analysis is difficult with a small area of apical severe hypokinesis suggested. 6. Moderate left atrial enlargement. 7. Mild right-sided chamber enlargement with mildly reduced right ventricular systolic function. 8. Elevated central venous pressure is suggested. 9. If clinically indicated, left ventricular systolic function may be better defined using MUGA scan. cc: MD Shashank Camp MD [facility]
[2019-07-06] MEDS: RENAGEL PO SCH ×2 (21:49→21:52)
--- NOTE | 2019-07-06 22:49 | PULMONOLOGY PROGRESS NOTE ---
DATE: 07/06/2019 SUBJECTIVE: The patient is awake, alert, and conversant. He is approximately 10 L negative during this hospitalization and has had approximately 15 L removed by dialysis. He reports his breathing has markedly improved. OBJECTIVE: Vital Signs: The patient has been afebrile for the last 24 hours. Blood pressure 101/33, heart rate 79, respiratory rate 22, oxygen saturation 100%. HEENT: Pupils are equal and reactive. Oropharynx is clear. Neck: Supple. Chest: Reveals shallow breath sounds bilaterally. Cardiac: S1, S2. Abdomen: Soft. Extremities: Reveal generalized edema and bruising with poor skin condition. LABORATORIES: Chest x-ray reveals cardiomegaly with significant decrease in pulmonary edema and effusions. IMPRESSION: A 74-year-old with 1. Acute hypoxemic and acute hypercapnic respiratory failure. His blood gas has improved with volume removal. 2. Metastatic renal cell carcinoma. 3. End-stage renal disease with bilateral nephrectomies. 4. Fluid overload with continued improvement with negative fluid balance. PLAN: 1. Fluid removal as tolerated. 2. Continue BiPAP at bedtime and p.r.n. 3. Continue palliative measures. cc: MD Shashank Bravo MD
[2019-07-07] MEDS ORDERED: CALMOSEPTINE OINTMENT TOP PRN (02:56)
[2019-07-07] MEDS: DOPAMINE 800 MG/D5W 800 MG/500 ML IV.SOLN IV SCH ×2 (03:44→19:26)
[2019-07-07 06:43] LABS: ALBUMIN 4.5 g/dL (3.5-5.0); CALCIUM 9.3 mg/dL (8.8-10.2); CREATININE 4.6 mg/dL (0.7-1.2); PHOSPHORUS 5.5 mg/dL (2.7-4.5); POTASSIUM 5.3 mmol/L (3.5-5.1)
[2019-07-07] MEDS: TYLENOL PO PRN ×2 (07:47→19:27)
[2019-07-07] MEDS: RENAGEL PO SCH ×4 (07:47→17:02)
[2019-07-07] MEDS: NEPHRO-VITE PO SCH (08:02)
[2019-07-07] MEDS: ELIQUIS PO SCH ×2 (08:02→20:08)
[2019-07-07] MEDS: PROAMATINE PO SCH ×3 (08:02→17:02)
[2019-07-07] MEDS: MIRAPEX PO SCH ×2 (08:02→20:08)
[2019-07-07] MEDS: MOBIC PO SCH (08:02)
[2019-07-07] MEDS: SENSIPAR PO SCH (08:06)
[2019-07-07] MEDS ORDERED: EFFIENT PO SCH (09:00)
--- NOTE | 2019-07-07 09:08 | PROGRESS NOTE ---
DATE: 07/07/2019 SUBJECTIVE: The patient is sitting in the bed. He looks more alert. He is complaining about various services and such in the hospital. Seems to be reasonably lucid. He is not struggling to breathe like he was before, but still is moderately tachypneic. OBJECTIVE: Vital Signs: The patient has had no fever. Pulse rate is roughly 78, respiration rate is 20, blood pressure is variable. At the time of my examination, his systolic pressure was 105 on the monitor. Physical Examination: The patient's lungs are generally clear. He is not wheezing. He has scattered ecchymoses about his graft on his right arm, on the left chest wall, and various other places. Toes are still painted with Betadine. ASSESSMENT AND PLAN: 1. The patient will continue with slow dialyzing. Yesterday, his negative fluid balance was another 4 L, which I think has improved his overall situation. Blood pressure is still tenuous. He is on midodrine. We might consider to add something like Cymbalta or venlafaxine as an antidepressant and maybe raise his blood pressure a few more points. This might actually make him feel better. 2. Respiratory failure. It seems to be improving with each dialysis treatment. 3. I am going to consult physical therapy to try and get him up in the chair. 4. Vascular access is adequate. 5. We will recheck a CBC tomorrow. 6. The patient needs to remain in the ICU due to dopamine still going at 7 mcg. cc: Shashank Guido MD
--- NOTE | 2019-07-07 14:00 | PROVIDER PROGRESS NOTE ---
Progress Note Subjective: Objective: temperature 98.1, pulse 84, respirations 23, blood pressure 120/46, 02 sat 92% on bipap. General: chronically ill white male lying in bed in no acute distress. HEENT: normocephalic, atraumatic, pupils equal and reactive, mucous membranes dry. Skin: warm and dry. Multiple bruises in different healing stages. Neck: supple, engorged external neck veins. Cardiovascular: S1, S2, distant heart tones. Regular rate and rhythm. No murmurs or gallops noted. Respiratory: clear to auscultation anteriorly Abdomen: soft, obese, nontender nondistended. Hypoactive bowel sounds. : non inspected Extremities:1+ pitting edema to BLE with Trace edema to hips. Neurological: drowsy, oriented to person, place, and time. Labs: sodium 133, potassium 5.3, chloride 97, carbon dioxide 20, BUN 33, creatinine 4.6, phosphorus 5.5. Intake 1774, output 6000. Impression: Chronic kidney disease stage 5D. Creatinine improved to 4.6 with SLED management. He had a 6L ultrafiltration yesterday. He has no uremic complaints. We will hold off on SLED today and evaluate tomorrow. Blood pressure. Hypotensive at times. Remains on dopamine drip. Fluid volume. Expanded, but improved. Will monitor. Anemia. Stable on last labs. Nephrovite started. Electrolytes. Stable. Anion gap acidosis. Likely Related to renal failure. Improving. Nutrition. Diet ordered. Physical deconditioning. Deferred to primary. Medication review. Mobic and sensipar started
[2019-07-07] MEDS: DULCOLAX PR PRN (15:07)
--- NOTE | 2019-07-07 22:27 | PULMONOLOGY PROGRESS NOTE ---
DATE: 07/07/2019 SUBJECTIVE: The patient is awake, alert and conversant. He denies shortness of breath at rest. His breathing has significantly improved over the last 3-4 days. OBJECTIVE: The patient has been afebrile for the last 24 hours. Blood pressure 113/40, heart rate 89, respiratory rate 24, oxygen saturation 92% on 50% FiO2. HEENT: Pupils are equal and reactive. Oropharynx appears clear. Neck is supple. Chest reveals crackles bilaterally. Cardiac exam: S1, S2. Abdomen is soft. Extremities reveal extensive chronic vascular disease. INCOMPLETE REPORT -- DICTATION ENDS HERE. cc: MD Shashank Bravo MD
[2019-07-08 06:36] LABS: BASO# 0.03 X1000 (0.0-0.2); BASO% 0.2 % (0.0-0.8); EOS# 0.18 X1000 (0.0-0.7); EOS% 1.4 % (0.0-10.0); HEMATOCRIT 39.6 % (42.0-52.0); HEMOGLOBIN 12.4 g/dL (14.0-18.0); IMM GRAN# 0.04 X1000 (0.0-0.04); IMM GRAN% 0.3 % (0.0-0.5); LYMPH# 0.82 X1000 (1.2-3.4); LYMPH% 6.2 % (20.5-51.1); MCH 33.2 PG (27-31); MCHC 31.3 g/dL (33-37); MCV 106.2 FL (81-99); MONO# 1.53 X1000 (0.11-0.59); MONO% 11.5 % (1.7-9.3); MPV 11.4 FL (7.4-10.4); NEUT# 10.72 X1000 (1.4-6.5); NEUT% 80.4 % (42.2-75.2); PLT 229 X1000 (130-400); RBC 3.73 XMIL (4.7-6.1); RDW 16.5 % (11.5-14.5); WBC 13.32 X1000 (4.8-10.8)
[2019-07-08 07:06] LABS: ALBUMIN 4.1 g/dL (3.5-5.0); CALCIUM 9.3 mg/dL (8.8-10.2); CREATININE 6.5 mg/dL (0.7-1.2); PHOSPHORUS 6.6 mg/dL (2.7-4.5); POTASSIUM 5.1 mmol/L (3.5-5.1)
[2019-07-08] MEDS: PROAMATINE PO SCH ×3 (08:05→16:20)
[2019-07-08] MEDS: TYLENOL PO PRN ×3 (08:05→23:59)
[2019-07-08] MEDS: RENAGEL PO SCH ×3 (08:05→16:20)
[2019-07-08] MEDS: MOBIC PO SCH (08:05)
[2019-07-08] MEDS: MIRAPEX PO SCH ×2 (08:05→21:07)
[2019-07-08] MEDS: ELIQUIS PO SCH ×2 (08:06→21:07)
[2019-07-08] MEDS: NEPHRO-VITE PO SCH (08:06)
[2019-07-08] MEDS: SENSIPAR PO SCH (08:06)
[2019-07-08] MEDS ORDERED: NS 2,000 ML MISC PRN (08:30)
--- NOTE | 2019-07-08 11:03 | PROGRESS NOTE ---
DATE: 07/08/2019 SUBJECTIVE: The patient has no real complaints. He denies any difficulty breathing. He is currently on SLED and dopamine. OBJECTIVE: Vital Signs: Temperature 97.8, pulse 85, respirations 20, blood pressure 80/66, on 4 L nasal cannula. PHYSICAL EXAMINATION: The patient is intermittently sleeping. He clearly has sleep apnea watching his breathing pattern. The lungs are clear with good air movement. There are no wheezes present. Cardiovascular is roughly regular, approximately 75 beats per minute. ASSESSMENT AND PLAN: 1. The patient will continue on dialysis today. Given his blood pressure and the amount of fluid that has been taken off over the last several days it is unlikely we will get a large negative fluid balance today. The patient will be on limited p.o. fluid intake over the weekend and we will continue to monitor his blood pressure. At present, the patient is on double-strength dopamine at approximately 7 mcg. He is also my Midodrine and I am going to add Cymbalta 30 mg. 2. The patient's respiratory failure is largely abated. He is using BiPAP at night and seems to be tolerating this reasonably well. Oxygenation seems to be improving slowly. 3. The patient complained of constipation as I left the room and we have p.r.n.'s written for. We have consulted Physical Therapy and we want to try and get him up. 4. Hopefully, we can wean the patient off of the dopamine over the course of the weekend. Unfortunately, I think we are still stuck in the ICU until we can get him off a titrated dose. cc: Shashank Guido MD
[2019-07-08] MEDS: DOPAMINE 800 MG/D5W 800 MG/500 ML IV.SOLN IV SCH (11:10)
[2019-07-08] MEDS: CYMBALTA PO SCH (11:10)
[2019-07-08] MEDS ORDERED: DOPAMINE 800 MG/D5W 800 MG/500 ML IV.SOLN IV SCH (17:45)
[2019-07-08] MEDS: DULCOLAX PR PRN (18:05)
--- NOTE | 2019-07-08 20:13 | NEPHROLOGY PROGRESS NOTE ---
DATE: 07/08/2019 SUBJECTIVE: He is awake. He is very somnolent, using nasal cannula oxygen. OBJECTIVE: Vital Signs: Blood pressure 117/48, heart rate 97, respiration 18, intake 1.8 L, output 0. PHYSICAL EXAMINATION: No acute distress. Skin is pale.Neck: Neck veins are not appreciated. Heart: Regular. Lungs: Equal. No crackles anteriorly. Abdomen: Soft, obese, nontender. Bowel sounds are present. Extremities: Maybe 1+ edema around the hips. IMPRESSION: Volume overload. We are dialyzing him today but we have may be reaching the limits of our capacity to achieve ultrafiltration. We will rest over the weekend. Operate around this new target weight. Stop his IV fluids. No other changes. cc: MD Shashank Jones MD
--- NOTE | 2019-07-08 23:41 | PROVIDER PROGRESS NOTE ---
Progress Note Dr. Leggett Progress Note/Pulmonary and or critical care Subjective: The patient is sitting in bed on VM 50%. He is on SLEDD. He appears lethargic with hypotension and tachypnea. He is arouable. He denies any pain, SOB, or cough at this time. Patients at the bedside. Input was appreciated from Dr. Guido and other teams on the case. Objective: Vital Signs: 98.4 (No fever in last 24 hours), DE 93, RR 27, BP 98/62 and SaO2 90% on VM 50%. I/O: +1834 ml. Physical Examination: General: Sitting in bed in mild respiratory distress. HEENT: Normocephalic. Trachea midline. Pupils equal round reactive to light. Chest: Tachypnea. No increased work of breathing noted. Symmetrical excursion. Auscultation reveals decreased air entry bilaterally. CVS: S1 and S2 appreciated. Abdomen: Soft. Nontender. Nondistended. Normoactive bowel sounds noted. Extremities: BLE on soft boots with generalized edema. No cyanosis. No clubbing. Neuro: Lethargic, but arousable. Able to answer simple questions and follow simple commands. Labs and Radiology: Laboratory Results 07/08/19 07/08/19 04:40 04:40 WBC 13.32 H RBC 3.73 L Hgb 12.4 L Hct 39.6 L MCV 106.2 H MCH 33.2 H MCHC 31.3 L RDW Std Deviation 16.5 H Plt Count 229 MPV 11.4 H Immature Gran % (Auto) 0.3 Neut % (Auto) 80.4 H Lymph % (Auto) 6.2 L [place] % (Auto) 11.5 H Eos % (Auto) 1.4 Baso % (Auto) 0.2 Immature Gran # (Auto) 0.04 Neut # (Auto) 10.72 H Lymph # (Auto) 0.82 L [place] # (Auto) 1.53 H Eos # (Auto) 0.18 Baso # (Auto) 0.03 Sodium 134 L Potassium 5.1 Chloride 97 L Carbon Dioxide 19 L Anion Gap 18 BUN 53 H D Creatinine 6.5 H Estimated GFR/1.73 m2 8 BUN/Creatinine Ratio 8 Glucose 130 H Calculated Osmolality 284 Calcium 9.3 Phosphorus 6.6 H Albumin 4.1 Assessment: Acute hypoxemic respiratory failure. Acute hypercapnic respiratory failure. Metastatic renal cell carcinoma. ESRD with bilateral nephrectomies. On dialysis per Dr. Finch. Fluid overload with shock. DNR1. Plan: Continue supplemental oxygen with BiPAP at bedtime and as needed. We titrated supplemental oxygen and BiPAP settings to patients needs per clinical protocol. We will monitor patients response closely. Continue dopamine drip per evp operations. We will continue to monitor patients blood pressure closely. Continue dialysis per Dr. Finch as tolerated. Physical therapy initiated. Total evaluation time in minutes: 33.
[2019-07-09] MEDS: TYLENOL PO PRN ×3 (06:08→21:38)
[2019-07-09 06:31] LABS: ALBUMIN 4.1 g/dL (3.5-5.0); CALCIUM 9.5 mg/dL (8.8-10.2); CREATININE 4.4 mg/dL (0.7-1.2); MAGNESIUM 2.2 mg/dL (1.5-2.7); PHOSPHORUS 5.1 mg/dL (2.7-4.5); POTASSIUM 5.2 mmol/L (3.5-5.1)
[2019-07-09] MEDS: RENAGEL PO SCH ×3 (08:19→17:23)
[2019-07-09] MEDS: NEPHRO-VITE PO SCH (10:07)
[2019-07-09] MEDS: PROAMATINE PO SCH ×3 (10:08→16:45)
[2019-07-09] MEDS: CYMBALTA PO SCH (10:09)
[2019-07-09] MEDS: SENSIPAR PO SCH (10:09)
[2019-07-09] MEDS: MIRAPEX PO SCH ×2 (10:09→21:38)
[2019-07-09] MEDS: ELIQUIS PO SCH ×2 (10:09→21:38)
[2019-07-09] MEDS: MOBIC PO SCH (10:09)
--- NOTE | 2019-07-09 12:17 | PROGRESS NOTE ---
DATE: 07/09/2019 SUBJECTIVE: The patient is sitting in the chair. He is awake, alert, oriented, conversive and appropriate. He has no complaints other than constipation. He had a suppository previously, but this was not successful. I tried the patient on 4 L nasal cannula while he is sitting up in he maintained his oxygen saturation. VITAL SIGNS: Pulse rate of 83, respiration 21, blood pressure 98/52. PHYSICAL EXAMINATION: Lungs: Patient's lungs are clear. Cardiovascular: Appears to be regular on the monitor and by examination. Extremities: There is wrinkling of the lower extremities consistent with fluid volume loss. His toes are painted with Betadine. Neuropsych: Alert, oriented, conversive and appropriate. LABORATORIES: There were no labs drawn today. ASSESSMENT AND PLAN: 1. The patient will have dialysis again Thursday. He is on a relative fluid fast over the weekend. he did have about a 2 L negative fluid balance after dialysis yesterday. 2. Patient's respiratory failure has stabilized. I have not recheck arterial blood gas. His oxygenation is improving and I think particularly when he is sitting up he can easily tolerate a nasal cannula. 3. Cardiology is going to try to wean the patient off his dopamine for his hypotension. He continues on midodrine and Duloxetine as adjuncts to help raise his blood pressure. 4. I am going to give the patient a Fleet's enema to help with his constipation. cc: Shashank Guido MD
--- NOTE | 2019-07-09 18:11 | PROVIDER PROGRESS NOTE ---
Progress Note Dr. Leggett Progress Note/Pulmonary and or critical care Subjective: The patient is sitting in the bedside chair on VM 50% and tolerates well. He appears more alert and energetic this morning. He is complaining of dry eyes from air leaking through the venturi mask. He is still constipated. Patients at the bedside. Input was appreciated from Dr. Guido and other teams on the case. Objective: Vital Signs: 97.3 (No fever in last 24 hours), SC 83, RR 35, BP 101/55 and SaO2 99% on VM 50%. I/O: -2386 ml. Physical Examination: General: Sitting in bedside chair. No acute distress noted. HEENT: Normocephalic. Trachea midline. Pupils equal round reactive to light. Chest: Tachypnea. No increased work of breathing noted. Symmetrical excursion. Auscultation reveals decreased air entry bilaterally. CVS: S1 and S2 appreciated. Abdomen: Soft. Nontender. Nondistended. Normoactive bowel sounds noted. Extremities: BLE pitting edema 1+ with multiple healing wounds and chronic stasis change. Neuro: A/O x3. Speech fluent. Follow commands. Labs and Radiology: Laboratory Results 07/09/19 05:00 Sodium 136 Potassium 5.2 H Chloride 100 Carbon Dioxide 21 L Anion Gap 15 BUN 32 H Creatinine 4.4 H Estimated GFR/1.73 m2 13 BUN/Creatinine Ratio 7 Glucose 117 H Calculated Osmolality 280 Calcium 9.5 Phosphorus 5.1 H Magnesium 2.2 Albumin 4.1 Assessment: Acute hypoxemic respiratory failure. Improving slowly. Acute hypercapnic respiratory failure. Metastatic renal cell carcinoma. ESRD with bilateral nephrectomies. On dialysis per Dr. Finch. Shock. Patient stays on dopamine drip. DNR1. Plan: Continue supplemental oxygen with BiPAP at bedtime and as needed. We titrated supplemental oxygen and BiPAP settings to patients needs per clinical protocol. We will monitor patients response closely. Weaning dopamine drip per boxing inspector. We will continue to monitor patients blood pressure. Continue dialysis per Dr. Finch. Physical therapy. Total evaluation time in minutes: 31.
[2019-07-10] MEDS: TYLENOL PO PRN ×2 (07:30→23:40)
[2019-07-10 07:32] LABS: ALBUMIN 3.9 g/dL (3.5-5.0); CALCIUM 9.3 mg/dL (8.8-10.2); CREATININE 5.9 mg/dL (0.7-1.2); PHOSPHORUS 6.2 mg/dL (2.7-4.5); POTASSIUM 5.7 mmol/L (3.5-5.1)
[2019-07-10] MEDS: RENAGEL PO SCH ×4 (08:06→17:11)
[2019-07-10] MEDS: MIRAPEX PO SCH ×2 (08:33→21:05)
[2019-07-10] MEDS: MOBIC PO SCH (08:33)
[2019-07-10] MEDS: PROAMATINE PO SCH ×3 (08:34→17:13)
[2019-07-10] MEDS: SENSIPAR PO SCH (08:34)
[2019-07-10] MEDS: CYMBALTA PO SCH (08:34)
[2019-07-10] MEDS: DOPAMINE 800 MG/D5W 800 MG/500 ML IV.SOLN IV SCH (08:34)
[2019-07-10] MEDS: NEPHRO-VITE PO SCH (08:34)
[2019-07-10] MEDS: ELIQUIS PO SCH ×2 (08:34→21:05)
--- NOTE | 2019-07-10 08:58 | NEPHROLOGY PROGRESS NOTE ---
DATE: 07/09/2019 SUBJECTIVE: He is sitting up on the bedside commode. No complaints. Shortness of breath has been better, and he has been able to eat. OBJECTIVE: Vital Signs: Blood pressure 105/20, heart rate 101, respirations 21, afebrile. Intake 1.6 L, output 4 L. General: No acute distress. Skin: Warm and dry. HEENT: Conjunctivae are pink. Neck: Neck veins are not visible in the erect position. Heart: Regular. No gallops. Lungs: Equal. No crackles. Abdomen: Obese, soft, nontender. Bowel sounds are present. Extremities: There is trace edema. No clubbing or cyanosis. IMPRESSION: Chronic kidney disease 5D with volume overload. Still hypervolemic, but I believe we have achieved as much ultrafiltration as possible given his blood pressure. Hold dialysis over the weekend. Working on minimizing his dopamine dose. Electrolytes and acid-base are acceptable. cc: MD Shashank Jones MD
--- NOTE | 2019-07-10 11:19 | PROGRESS NOTE ---
DATE: 07/10/2019 SUBJECTIVE: The patient is sitting in a chair. He has no complaints. He did not have any results from his enema yesterday. PHYSICAL EXAMINATION: The patient is alert, oriented, conversive and appropriate.Vital Signs: Vital signs pulse rate 71, respiratory rate is 20, blood pressure 91/52, EMAP 60. He is still on a few MCG of dopamine although this has been weaned down. Lungs: Clear. Cardiovascular: Regular approximately 70 beats per minute at the time my examination. Extremities: Overall size of the lower extremities has been markedly reduced since admission. The nurse is painting his toes with Betadine. ASSESSMENT AND PLAN: 1. Dialysis is scheduled for Thursday. Given his blood pressure, not sure how much ultrafiltration will be able to be tolerated. 2. Respiratory status has stabilized. 3. The patient is being weaned off his dopamine. He still has very low blood pressure. I have increased his Cymbalta dose in the hopes that his blood pressure will go up a bit more. His states that his mood has improved on Cymbalta. He is already on midodrine for increasing blood pressure. I am going to try him with an abdominal binder. We may have to experiment with some methylphenidate after we get him off of the dopamine. 4. I am going to re-dose the patient's enema to see if we can help with constipation. cc: Shashank Guido MD
[2019-07-10] MEDS: ZOFRAN IV PRN (13:39)
--- NOTE | 2019-07-10 19:45 | PROVIDER PROGRESS NOTE ---
Progress Note Dr. Leggett Progress Note/Pulmonary and or critical care Subjective: The patient is sleeping in bed on VM 50%. He actually has been on NC since yesterday. At an earlier time, he transferred from the bedside chair back to bed and developed desaturation. So he was put back on VM 50%. He stays hypotensive. He is still on Dopamine drip at this time which has been weaning down continuously since yesterday per Dr. Al. Patients at the bedside. She reports he is still compensated. Input was appreciated from Dr. Guido and other teams on the case. Objective: Vital Signs: 97.9 (No fever in last 24 hours), ND 69, RR 23, BP 94/25 and SaO2 97% on NC 4L. I/O: +719 ml. Physical Examination: General: Sleeping in bed. No acute distress noted. HEENT: Normocephalic. Trachea midline. Chest: Even and unlabored. No increased work of breathing noted. Symmetrical excursion. Auscultation reveals decreased air entry bilaterally. CVS: S1 and S2 appreciated. Abdomen: Soft. Nontender. Mildly distended. Normoactive bowel sounds noted. Extremities: BLE pitting edema 1+ with multiple healing wounds and chronic stasis change. Neuro: Sleeping. Labs and Radiology: Laboratory Results 07/10/19 04:50 Sodium 134 L Potassium 5.7 H Chloride 99 Carbon Dioxide 18 L Anion Gap 17 BUN 50 H D Creatinine 5.9 H Estimated GFR/1.73 m2 9 BUN/Creatinine Ratio 8 Glucose 92 Calculated Osmolality 281 Calcium 9.3 Phosphorus 6.2 H Albumin 3.9 Assessment: Acute hypoxemic respiratory failure. Improving slowly. Acute hypercapnic respiratory failure. Metastatic renal cell carcinoma. ESRD with bilateral nephrectomies. On dialysis per Dr. Finch. Shock. Patient stays on dopamine drip which has been continuously weaning down since yesterday per Dr. Al. DNR1. Plan: Continue supplemental oxygen with BiPAP at bedtime and as needed. We titrated supplemental oxygen and BiPAP settings to patients needs per clinical protocol. We will monitor patients response closely. Weaning dopamine drip per manager math. We will continue to monitor patients blood pressure. Dialysis per Dr. Finch. Physical therapy. Recommend outpatient CPAP re-titration. Total evaluation time in minutes: 32.
[2019-07-11] MEDS: ZOFRAN IV PRN ×2 (02:50→14:50)
[2019-07-11] MEDS ORDERED: SODIUM CHLORIDE 0.9% INJ SCH (03:15)
[2019-07-11] MEDS: PROTONIX IV SCH ×2 (03:55→16:04)
[2019-07-11 07:00] LABS: HEMATOCRIT 31.2 % (42.0-52.0); HEMOGLOBIN 9.6 g/dL (14.0-18.0); MCH 33.3 PG (27-31); MCHC 30.8 g/dL (33-37); MCV 108.3 FL (81-99); MPV 11.8 FL (7.4-10.4); RBC 2.88 XMIL (4.7-6.1); RDW 15.9 % (11.5-14.5); WBC 14.38 X1000 (4.8-10.8)
[2019-07-11] MEDS ORDERED: CYMBALTA PO SCH (09:00)
[2019-07-11] MEDS ORDERED: PROTONIX 80 MG in NS 80 ML IV SCH (09:30)
[2019-07-11] MEDS: MIRAPEX PO SCH (09:55)
[2019-07-11] MEDS: NEPHRO-VITE PO SCH (09:56)
[2019-07-11] MEDS: SENSIPAR PO SCH (09:56)
[2019-07-11] MEDS: PROAMATINE PO SCH ×2 (09:57→14:17)
[2019-07-11] MEDS: RENAGEL PO SCH ×2 (09:58→14:16)
[2019-07-11] MEDS: TYLENOL PO PRN (10:06)
--- NOTE | 2019-07-11 10:30 | PROGRESS NOTE ---
DATE: 07/11/2019 SUBJECTIVE: Last night around 3 a.m. I was called by the ICU nurse stating the patient had coffee- grounds emesis. Since that time, he has had some black tarry stool output and his pressure is down moderately. OBJECTIVE: Vital Signs: Pulse rate of 90, respirations 18, blood pressure 86/36, and 97% saturated. General: On physical exam, the patient is awake, alert, oriented and conversive and appropriate. Lungs: Clear. Cardiovascular: Irregular, approximately 90 beats per minute. Extremities: Did not show any significant fluid retention compared to previous exam. LABORATORY DATA: Hemoglobin is 9.6, hematocrit 31.2. This is significantly decreased from several days ago when his hemoglobin was 12.4. ASSESSMENT AND PLAN: 1. The patient has clearly developed what is likely an upper gastrointestinal bleed. Dr. Last has been consulted, but due to the patient's hypotension, I think it would be inadvisable to proceed with esophagogastroduodenoscopy unless absolutely life-threatening at this point. We have stopped his meloxicam, stopped his Eliquis, and added intravenous Protonix. I think Dr. Last will be adding a Protonix drip. We will continue to monitor hemoglobin levels. He is scheduled for transfusion of 1 unit today due to the rapidity of the drop in his hemoglobin. 2. The patient had been scheduled for dialysis today. If he undergoes this, it would be unlikely to have any significant ultrafiltration of fluid volume. 3. Respiratory status has been stable. 4. The patient's dopamine use is back up due to likely the loss of some blood volume. We will continue Cymbalta and midodrine. He was intolerant of the abdominal binder that I had ordered yesterday. 5. The patient did not receive a second enema, but he did have a bowel output which apparently was melenic and tested positive for blood. cc: Shashank Guido MD
[2019-07-11] MEDS ORDERED: NS 500 ML ONE (13:25)
[2019-07-11] MEDS: DOPAMINE 800 MG/D5W 800 MG/500 ML IV.SOLN IV SCH (13:40)
--- NOTE | 2019-07-11 14:34 | GASTROENTEROLOGY CONSULTATION ---
DATE: 07/11/2019 REASON FOR CONSULTATION: GI bleed. HISTORY OF PRESENT ILLNESS: Mr. Larson is a 74-year-old male who is in the ICU since 07/04/2019. The patient has a past medical history of end-stage renal disease and is on dialysis Thursday, Thursday, and Thursday. The patient has both the kidneys removed. His one kidney was removed in 1969 and the second one was removed after he had renal cancer with mets to lungs and kidney. He has obstructive sleep apnea, hypertension, chronic diastolic congestive heart failure-chronic hypotension, restless legs syndrome, gout. The patient's mentioned that 4 weeks back he had a surgery with a fistula. A stent was placed on the right leg. The patient had dialysis the next day and then when he was at the dialysis his blood pressure had lowered down and he was sent to [facility]. He was in the ICU for 2 weeks there. After that he was sent to the rehab for 3 days, on a Thursday when he went back for dialysis he had the same problem. His blood pressure dropped and he was sent to [facility]. The patient has a metastatic renal cancer. He was taking chemo and radiation with his oncologist, Dr. Drake. The patient yesterday started throwing up blood and as per the she said that he had vomited coffee-ground emesis. The patient's hemoglobin and hematocrit today is 9.6 and 31.02. The patient is getting 1 unit of blood today. PAST MEDICAL HISTORY: End-stage renal disease on dialysis Thursday, Thursday, Thursday. The patient had renal cell cancer which has metastasized to the lungs and kidneys. Both the kidneys have been removed. Chronic obstructive sleep apnea, congestive heart failure, chronic hypotension, restless legs syndrome and gout. PAST SURGERIES: Left kidney was removed in 1969. Right kidney was removed in 2011. Appendectomy, dialysis fistula, coronary stent placement, defibrillator. SOCIAL HISTORY: The patient is , lives with his . He has denied any tobacco abuse. He used to occasionally drink beer in the past and denied any illicit drug use. ALLERGIES: No known drug allergies. FAMILY HISTORY: Significant for diabetes arthritis, hypertension, cholesterol. MEDICATIONS: The patient's home medications are Sensipar 30 mg p.o. daily, renavit tablet 1 mg p.o. daily. Meloxicam 15 mg p.o. daily. Mirapex 0.5 mg p.o. twice a day and Renvela 2400 mg p.o. 3 times a day, Effient 10 mg p.o. daily, aspirin 81 mg p.o. daily. REVIEW OF SYSTEMS: As per HPI. Otherwise, 12 point review of system is negative physical. PHYSICAL EXAMINATION: Temperature 97.7 degrees, pulse 89, respirations 20, blood pressure 82/36, oxygen saturation 99%. Patient is on a Ventimask. His weight is 243 pounds. BMI is 33.9 kg/m2.General: He is alert, oriented x3, and in no acute distress. HEENT: Pale conjunctivae. No icterus. PERRL. Neck: Supple. Lungs: Clear to auscultation. Cardiovascular: Patient is tachycardic. Abdomen: Distended, nontender. Active bowel sounds heard in all 4 quadrants. Extremities: No clubbing, no cyanosis, no edema. Pedal pulses 2+ present bilaterally. Neurologic: He is alert, oriented x3. Nonfocal. Cranial nerves 2-12 grossly. Extremities: No clubbing. No cyanosis. Generalized edema. Patient has got a dressing on his left foot. LABORATORY DATA: WBCs of 14.38, RBCs 2.88, hemoglobin is 9.6, hematocrit is 31.2. Platelet 229,000 sodium 124, potassium 5.7, chloride 99, carbon dioxide 18, anion gap 17, BUN 15, creatinine is 5.9, glucose is 92. Calcium 9.3, albumin 3.9. IMPRESSION AND PLAN 1. Hypotension. 2. History of renal cell carcinoma. 3. End-stage renal disease, on hemodialysis. 4. Anemia. 5. Fluid overload. 6. Coffee-ground emesis 7. Melena PLAN: Mr. Larson is a 74-year-old male with a history of renal cell carcinoma and end-stage renal disease. He is on dialysis Thursday, Thursday, and Thursday. The patient is going to receive his dialysis today. GI has been consulted for his coffee-ground emesis and melena. The patient's hemoglobin and hematocrit today is 9.6 and 31.2. The patient is getting 1 unit of blood. We will plan on doing EGD once hypotension is improved with resuscitation. His current blood pressure today is 82/36. Continue to keep close eye on the patient. We have started the patient on Protonix 80 mg IV drip at 10 mL/h. He is on a bowel regimen Dulcolax as needed. The patient's Eliquis is currently on hold. Will avoid NSAIDs. We will continue to monitor patient's hemoglobin and hematocrit and if his hematocrit drops below 23, we will transfuse him packed red blood cells per protocol. This plan was discussed with Dr. Last. Thank you for your consult. Please call us for any further questions or concerns. Dictated by DARLIN Montejo for Jamison Last MD cc: MD Shashank Epperson MD I have seen and examined the patient myself and I agree with the above plan of care. I spoke to Dr uGido and discussed the plan of care. Please call us with any further questions or concerns. MTDD
[2019-07-11 16:57] LABS: ALLEN TEST YES; BE -16.4 mmoll (-3.0-3.0); BLOOD TYPE ARTERIAL; METHB 0.7 % (0.0-1.5); O2(CT) 12.9 mL/dL (15.0-23.0); PCO2(98.6) 47 mmHg (35-45); PO2(98.6) 60 mmHg (60-100); SAMPLE BLOOD; SAO2 92.8 % (95.0-100.0); THB 10.3 g/dL (11.5-17.4)
[2019-07-11 16:59] LABS: MODALITY CANNULA; O2HB 88.5 % (95.0-99.0); pH(98.6) 7.06 (7.35-7.45)
[2019-07-11 17:47] VITALS: BP 83/57
--- NOTE | 2019-07-11 19:00 | PROVIDER PROGRESS NOTE ---
Progress Note Subjective: He reports coffee ground emesis and black tarry stools during the night. Objective: temperature 97.7, pulse 89, respirations 20, blood pressure 82/36, 02 sat 99% on Venturi mask. General: chronically ill white male lying in bed in no acute distress. HEENT: normocephalic, atraumatic, pupils equal and reactive, mucous membranes dr y. Skin: warm and dry. Multiple bruises in different healing stages. Neck: supple, engorged external neck veins. Cardiovascular: S1, S2, distant heart tones. Regular rate and rhythm. No murmurs or gallops noted. Respiratory: clear to auscultation anteriorly Abdomen: soft, obese, nontender nondistended. Hypoactive bowel sounds. : non inspected Extremities:1+ pitting edema to BLE with Trace edema to hips. Neurological: drowsy, oriented to person, place, and time. Labs: WBC 14.38, hemoglobin 9.6, hematocrit 31.2, platelet count 229. Intake 794, output 150. Impression: Chronic kidney disease stage 5D. His Creatinine has trended up since his last treatment. We will give a unit of PRBCs and reevaluate his blood pressure. BP is too low for dialysis today. No acute indications for HD. Reevaluate after his transfusion. Suspected GI bleed. Consult GI. Hold NPO. Blood pressure. Hypotensive. Remains on dopamine drip. Will give 1 unit PRBC to help manage. Fluid volume. Expanded, but improved. Continue fluid restrictions.Will monitor. Anemia. Low, we ordered 1 unit PRBC. GI evaluation. Electrolytes. Stable. Anion gap acidosis. Likely Related to renal failure. Improving. Nutrition. Hold NPO right now for possible EGD. Physical deconditioning. Deferred to primary. Medication review. No changes.
--- NOTE | 2019-07-11 19:20 | PROVIDER PROGRESS NOTE ---
Progress Note Dr. Leggett Progress Note/Pulmonary and or critical care Subjective: The patient is lying in bed on his left side with mild SOB noted. He is on NC 4L at this time. He reports SOB with any activities. He is hypotensive with Dopamine 8 mcg/kg/min on. He apparently had coffee ground emesis and black tarry stools last night. Patients at the bedside. Input was appreciated from Dr. Guido and other teams on the case. Objective: Vital Signs: 97.7 (Low grade fever at 99.7 last night), LA 90, RR 18, BP 86/36 and SaO2 97% on VM 50%. I/O: +644 ml. Physical Examination: General: Lying in bed with mild respiratory stress. HEENT: Normocephalic. Trachea midline. Chest: Mildly labored with mildly increased work of breathing, but no accessory muscle use noted. Symmetrical excursion. Auscultation reveals decreased air entry bilaterally. CVS: S1 and S2 appreciated. Abdomen: Soft. Nontender. Mildly distended. Normoactive bowel sounds noted. Extremities: BLE pitting edema 1+ with multiple healing wounds and chronic stasis change. Neuro: Awake and alert. Speech fluent. Follow commands. Labs and Radiology: Laboratory Results 07/11/19 07/11/19 07/11/19 06:00 06:00 09:09 WBC 14.38 H RBC 2.88 L Hgb 9.6 L Hct 31.2 L MCV 108.3 H MCH 33.3 H MCHC 30.8 L RDW Std Deviation 15.9 H Plt Count 229 MPV 11.8 H Specimen Type Sample Site pH pCO2 pO2 HCO3 Base Excess Oxyhemoglobin ABG O2 Sat (Calculated) ABG O2 Saturation ABG Carboxyhemoglobin ABG Methemoglobin Marco A Test A-a O2 Difference Total Hemoglobin Lactate Liter Flow Blood Gas Modality FiO2 % Blood Type O POSITIVE Blood Type Confirm O POSITIVE Antibody Screen NEGATIVE Crossmatch See Detail 07/11/19 16:48 WBC RBC Hgb Hct MCV MCH MCHC RDW Std Deviation Plt Count MPV Specimen Type ARTERIAL Sample Site L RADIAL pH 7.06 L* pCO2 47 H pO2 60 HCO3 12.0 L Base Excess -16.4 L Oxyhemoglobin 88.5 L* ABG O2 Sat (Calculated) 12.9 L ABG O2 Saturation 92.8 L ABG Carboxyhemoglobin 3.80 H ABG Methemoglobin 0.7 Marco A Test YES A-a O2 Difference 109.0 Total Hemoglobin 10.3 L Lactate 1.40 Liter Flow 3.0 Blood Gas Modality CANNULA FiO2 % 32.0 Blood Type Blood Type Confirm Antibody Screen Crossmatch Assessment: Acute hypoxemic respiratory failure. Improving slowly. Acute hypercapnic respiratory failure. Metastatic renal cell carcinoma. ESRD with bilateral nephrectomies. On dialysis per Dr. Finch. Shock. Patient stays on dopamine drip which has been uptitrated since yesterday to 8 mcg/kg/min at this time. Worsened microcytic anemia secondary to GI bleeding. 1 unit of PRBC transfusion ordered per Dr. Finch. DNR1. Plan: Continue supplemental oxygen. Continue BiPAP at bedtime and as needed. We titrated supplemental oxygen and BiPAP settings to patients needs per clinical protocol. We will monitor patients response closely. Continue weaning dopamine as tolerated. We titrated dopamine drip to patients needs per clinical protocol. We will continue to monitor patients blood pressure closely. 1 unit of PRBC transfusion ordered per Dr. Finch. Dialysis per Dr. Finch. Physical therapy. Recommend outpatient CPAP re-titration. Total evaluation time in minutes: 33.
--- NOTE | 2019-07-12 21:55 | DISCHARGE SUMMARY ---
ADMISSION DATE: 07/04/2019 DISCHARGE DATE: 07/11/2019 DISCHARGE DIAGNOSES: 1. Right metabolic acidosis. 2. End-stage renal disease on dialysis. 3. Surgical absence of both kidneys. 4. Stage IV renal cell carcinoma. 5. Chronic hypotension. 6. Atrial fibrillation. 7. Acute upper GI bleed. 8. Chronic anemia. HOSPITAL COURSE: The patient was admitted from [facility] due to hypotension. He had similar episode a few weeks before and was actually sent to [facility], where he spent 2 weeks in the hospital and then went to rehab. He only been in rehab short time when he was back to [facility] and had hypotension again. Over the course of those preceding weeks very little in the way of fluid ultrafiltration had been able to be undertaken because of hypotension. As a result, when the patient presented, he was dyspneic, had hypoxemia and hypercarbia due to hypoventilation. He was massively fluid overloaded and admitted to the ICU. He was started on dopamine to prop up his chronically low blood pressure and we realized we were able to filter off quite a bit of fluid over the next several days. He had full improvement in his overall status throughout that time, despite the tenuous nature of his blood pressure. He lost somewhere between 25 and 30 pounds of fluid weight over the first four days of his hospitalization. The patient's blood pressure continued to be rather low and he remained on the dopamine drip throughout his hospitalization. Attempts were made to wean it off, but these were unsuccessful by and large. He was also on midodrine and Cymbalta in the hopes that it would prop up his blood pressure. The day of his nurse reported coffee-ground emesis and he had melenic stools. GI medicine was consulted and the patient was transfused 1 unit of packed red cells. Unfortunately, his blood pressure precluded the use of any anesthesia and he was treated medically with a Protonix drip and other supportive measures. The patient became dyspneic in the afternoon of his and had progressively lowering O2 saturation. ABG revealed severe metabolic acidosis and hypoxemia. The pulmonary doctor who was covering was contacted and attempts were made to prop up the patient's oxygenation, respiratory status, and correct his metabolic acidosis. Unfortunately, the patient did not respond and he succumbed to all of these chronic illnesses with his present. At admission the patient had been made a Do Not Resuscitate level 1 and no resuscitative actions were taken on his behalf. cc: Shashank Guido MD
== END 2019-07-11 17:50 | disposition expired | DRG 291 ==
LOC: SUPCPDRO → ED 08:19 → ICU 11:49
PROVIDERS: ADMIT Internal Medicine; ATTEND Internal Medicine